=== PATIENT | female | born 1960 | race Caucasian/White ===

== ENCOUNTER 2020-02-01 21:36 | Emergency (ER) | payer OTHER ==
--- OUTSIDE RECORDS SUMMARY | 2020-02-01 21:38 | XMS REPORT | Clinical Summary ---
:1960 Author Organization [facility] Address [address] [place] [address] Care Team Providers Name Role Phone Brandon Nguyen Primary Care Provider Allergies No Known Allergies Medications Medication Sig Dispensed Refills Start Date End Date Status citalopram (CELEXA) 20 Take 20 mg by 0 Active MG tablet mouth daily. pantoprazole Take 40 mg by 0 Act stephen (PROTONIX) 40 MG mouth daily. tablet lactobacillus Take 1 capsule by 0 Active rhamnosus, GG, mouth daily. (CULTURELLE) 10 billion cell capsule Missing or CHOLESTENE FOR CHOLESTROL OTC 0 Active Non-Formulary 1 CAPSULE DAILY . Medication Active Problems Not on file Social History Tobacco Use Types Packs/Day Years Used Date Never Smoker Smokeless Tobacco: Never Used Alcohol Use Drinks/Week oz/Week Comments Yes 7 Glasses of wine 4.2 Sex Assigned at Date Recorded Not on file Job Start Date Occupation Industry Not on file Not on file Not on file Travel History Travel Start Travel End No recent travel history available. Last Filed Vital Signs Not on file Plan of Treatment Not on file Results Not on fileafter 01/31/2019 Insurance Payer Benefit Plan / Group Subscriber ID Type Phone A ddress [employer] [facility] [place] [employer] x[place] PPO CARE [facility] [place] [employer] xxxxxxxxx HMO/POS CARE CHOICE
--- OUTSIDE RECORDS SUMMARY | 2020-02-01 21:39 | XMS REPORT | Summary of Care ---
:1960 Author Name HEYDI Bello Address Unavailable Unavailable , Care Team Providers Name Role Phone HEYDI Bello Unavailable Unavailable LO LYN Unavailable Unavailable Slim LYN Unavailable Unavailable ALLEGRA LYN Unavailable Unavailable HEYDI LYN Unavailable Unavailable Unavailable Unavailable Unavailable Functional Status Name Dates Details Functional status health issues are not documented Status: Name Dates Details Cognitive status health issues are not documented Status: Problems Name Dates Details Positive EFRAIN (antinuclear antibody) (795.79, R76.8) Status: Active Shortness of breath (786.05, R06.02) Sta tus: Active 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 Refills: 0 Active Pantoprazole Sodium 40 MG Oral Tablet Delayed Release TAKE 1 TABLET DAILY. Refills: 0 Active 7 Tablet Bottle Lexapro 10 MG Oral Tablet TAKE 1 TABLET DAILY. Refills: 0 Active Allergies and Adverse Reactions Name Dates Details No Known Drug Allergies (Allergy) Status : Active Past Medical History Name Dates Details History of H/O colonoscopy (V45.89, Z98.890) Status: Resolved History of hemorrhoids (V13.89, Z87.19) Status: Resolved History of (V13.29) Status: Re solved Procedures Procedure Dates Details History of section Completed History of Tonsillectomy Completed History of Cataract surgery Completed History of Shoulder surgery Completed History of Abdominoplasty Completed History of Kristina fundoplication laparoscopic Completed Immunization Name Dates Details Immunizations not documented Family History Name Dates Details Family history of Myofibrosis (728.2, M62.89) Status: Active Name Dates Details Family history of multiple sclerosis (V17.2, Z82.0) Status: Active Social History Name Dates Details - Status: Name Dates Details Never smoked tobacco (finding) Vital Signs Date Test Result Details No Known Vitals to report Results Date Description Value Details Results not documented Plan of Care Name Dates Details Planned Observations Planned Goals not documented Interventions Provided Plan1. Present at reflux multidisciplinary conference 2. Will follow up with patient after reflux conference. Instructions Name Dates Details Instructions not documented Encounters Appointment; SHIVA BENAVIDEZ M.D. On: 17-Jan-2018 10:00 Encounter Diagnosis: Problem not documented Appointment; CONRAD BLANCHARD M.D. On: 23-Aug-2018 14 :00 Encounter Diagnosis: Problem not documented Appointment; CONRAD BLANCHARD M.D. On: 28-Aug-2018 14 :00 Encounter Diagnosis: Problem not documented Appointment; LUC HURLEY M.D. On: 18-Mar-2019 14:3 0 Encounter Diagnosis: Problem not documented Appointment; MARTIN DINH M.D. On: 27-Mar-2019 11:30 Encounter Diagnosis: Problem not documented Appointment; LUC HURLEY M.D. On: 11-Jun-2019 11:00 Encounter Diagnosis: Problem not documented Appointment; MARTIN DINH M.D. On: 14-Jun-2019 13:00 Encounter Diagnosis: Problem not documented Appointment; MARTIN DINH M.D. On: 21-Jun-2019 11:00 Encounter Diagnosis: Problem not documented Appointment; MARTIN DINH M.D. On: 28-Jun-2019 14:30 Encounter Diagnosis: Problem not documented Appointment; MARTIN DINH M.D. On: 15-Jul-2019 15:15 Encounter Diagnosis: Problem not documented Appointment; JAQUELIN SOLIZ M.D. On: 06-Aug-2019 9:00 Encounter Diagnosis: Problem not documented Appointment; MARTIN DINH M.D. On: 03-Sep-2019 14:15 Encounter Diagnosis: Problem not documented Appointment; JAQUELIN SOLIZ M.D. On: 25-Oct-2019 11:30 Encounter Diagnosis: Problem not documented Appointment; JAQUELIN SOLIZ M.D. On: 19-Nov-2019 14:45 Encounter Diagnosis: Problem not documented
--- OUTSIDE RECORDS SUMMARY | 2020-02-01 21:39 | XMS REPORT | Continuity of Care Document ---
:1960 Author Organization [facility] t Address [address] [place] [address] Care Team Providers Name Role Phone Wendy Brandon Primary Care Physician HEYDI Attending Clinician Unavailable Paulina Guerra Attending Clinician MYLES Attending Clinician Unavailable Enrique Hurley Attending Clinician SLIM Attending Clinician Unavailable Slim Bueno Attending Clinician LO Attending Clinician Unavailable Kalyan Burdick Attending Clinician REEMA Attending Clinician Unavailable Nancy Burciaga Attending Clinician Lo Attending Clinician Faisal Song Attending Clinician Caseyassi Admitting Clinician Problems Condition Condition Condition Status Onset Resolution Last Treating Co mments Source Name Details Category Date Date Treatment Clinician Date GERD Diagnosis Active 2019-10-14 Mem oria 3- 12:42:00 l GERD 00:00: Mitchell 00 Active 08/08/2019 [facility] GERD K21.9 Diagnosis Active 2019-11-01 Memoria 3-05 16:22:00 l GERD 00:00: [place] K21.9 00 Active 08/08/2019 [facility] DIARRHEA Diagnosis Active 2018-062019-06-11 M emoria JAMESLERODER 0-14 10:22:00 l RMA DIARRHEA 00:00: [place] DYSPHAGIAA SCHLERODER 00 RMA DYSPHAGIAA Active 03/18/2019 [facility] FOLLOW UP Diagnosis Active 2019-03-28 Memoria 8 09:26:00 l FOLLOW 00:00: [place] UP 00 Active 9 [facility] NEW PT Diagnosis Active 2018-01-19 Mem oria CONSULT - 13:06:00 l NEW PT 00:00: Mitchell CONSULT 00 Active 11/13/2017 [facility] V76.12 - Diagnosis Active 2013-12-10 M emoria SCREEN 11-13 17:00:00 l MAMMOGRA V76.12 - 00:01: Herm faye SCREEN 00 MAMMOGRA Active 11/13/2013 [place] History of History of Problem Resolve [facility] [place] [facility] History of History of Problem Resolve Univers H/O H/O d [place] History of History of Problem Resolve Univers hemorrhoid hemorrhoid d it y of s s [place] [facility] Positive Positive Problem Active Unive rs EFRAIN EFRAIN ity of (antinucle (antinucle [place] [facility]ici antibody) antibody) ans Shortness Shortness Problem Active Uni vers of breath of breath [facility] [place] [facility] Limited Limited Problem Active Univers scleroderm scleroderm it y of a a [place] [facility] Hiatal Hiatal Problem Active Univers hernia hernia [facility] [place] [facility] Seasonal Seasonal Problem Active Unive rs allergies allergies [facility] [place] [facility] Depression Depression Problem Active U nivers [facility] [place] [facility] Hemorrhoid Hemorrhoid Problem Active U nivers [facility] [place] [facility] Dysphagia Dysphagia Problem Active Uni vers [facility] [place] [facility] GERD GERD Problem Active Univers (gastroeso (gastroeso it y of phageal phageal [place] reflux reflux Physici disease) disease) ans Abdominal Problem 2018-08-06 Me moria distension 12:19:11 l (gaseous) [place] Abdominal distension (gaseous) 08/06/2018 [facility] Encounter Problem 2018-07-12 Me moria for 12:06:19 l screening Mitchell for Encounter osteoporos for is screening for osteoporos is 07/12/2018 [place] Asymptomat Problem 2018-07-12 M emoria ic 12:06:19 l menopausal [place] state Asymptomat ic menopausal state 07/12/2018 [place] Other Problem 2018-07-12 Memor ia specified 12:06:19 l disorders Other [place] of bone specified density disorders and of bone structure, density unspecifie and d site structure, unspecifie d site 07/12/2018 [place] Depressive Problem Resolve 2019-12-05 Memoria disorder d 23:43:30 l (disorder) [place] Depressive disorder (disorder) Resolved Problem 12/05/2019 [facility], [place],[facility], EDDC History of Problem Resolve 2019-12-05 Memoria - d 23:43:30 l cardiovasc History Her perez ular of - disease cardiovasc (context-d ular ependent disease category) (context-d ependent category) Resolved Problem 12/05/2019 [facility], [place],[facility], [facility]DC Hemorrhoid Problem Resolve 2019-12-05 Memoria s d 23:43:30 l (disorder) [place] castro Hemorrhoid s (disorder) Resolved Problem 12/05/2019 [facility], [facility]DC Hyperchole Problem Resolve 2019-12-05 Memoria sterolemia d 23:43:30 l (disorder) [place] castro Hyperchole sterolemia (disorder) Resolved Problem 12/05/2019 [facility], [place],[facility], EDDC Systemic Problem Resolve 2019-12-05 Me moria sclerosis d 23:43:30 l (disorder) Systemic He rmann sclerosis (disorder) Resolved Problem 12/05/2019 [facility], [place],[facility], [facility] GASTRO-ESO Diagnosis Active 2019-11-01 Memoria PHAGEAL 16:22:00 l REFLUX Mitchell DISEASE GASTRO-ESO WITHOUT PHAGEAL REFLUX DISEASE WITHOUT Active [facility] Encounter Problem 2017-2018-07-12 2018-07-12 Memoria for 12-29 12:06:19 12:06:19 l screening 04:06: [place] mammogram Encounter 14 for for malignant screening neoplasm mammogram of breast for malignant neoplasm of breast 12/29/2017 07/12/2018 [place] Allergies, Adverse Reactions, Alerts Allergy Allergy Status Severity Reaction(s) Onset Inactive Treating Comm ents Source Name Type Date Date Clinician No Known No Known Active Marie a Medicati Medicati l on on Mitchell Shaw s s Family History Family Member Diagnosis Comments Start Date Stop Date Source Mother Family history of [facility] [place] Myofibrosis Physicians Father Family history of [facility] ity of [place] multiple sclerosis Physic ians Social History Social Habit Start Date Stop Date Quantity Comments Source Sex Assigned At [facility] Social History 2017-09-28 2017-09-28 [facility] 04:59:00 04:59:00 Smoking Status Start Date Stop Date Source Never smoker [facility] Medications Ordered Filled Start Stop Current Ordering Indication Dosage Frequency Signature Comments Components Source Medication Medication Date Date Medication? Clinician (SIG) Name Name [facility] Yes 15 mL, Memoria Mouthwash 6-29 S&SWALLOW, l (Benadryl/L 16:43: QID, # Herm faye idocaine/Ma 00 1800 mL, 6 alox/) Refill(s), 1:1:1 called to pharmacy [facility] Yes MarlysaGam Ks moria 1-08 See l 21:34: Instructio Mitchell 00 ns, Take 1 Packet BID X 14 Days; then Take 1 Take Daily, # 2 box, Refill(s) 1, Pharmacy: [facility] 2018-06 Yes 15 mL, Memoria Mouthwash 0-15 S&SWALLOW, l (Benadryl/L 15:43: QID, PRN He rmann idocaine/Ma 57 GI Upset, alox/) # 400 mL, 1:1:1 1 Refill(s), called to pharmacy [facility] 2018-06 No 15 mL, Memoria Mouthwash 0-14 S&SWALLOW, l (Benadryl/L 20:42: PRN, PRN He rmann idocaine/Ma 20 GI Upset, alox/) # 600 mL, 1:1:1 0 Refill(s), called to pharmacy [facility] 2018-06 No 15 mL, Memoria Mouthwash 0-14 S&SWALLOW, l (Benadryl/L 20:31: PRN, PRN He rmann idocaine/Ma 00 GI Upset, alox/) # 600 mL, 1:1:1 0 Refill(s) Escitalopra 2018-06 Yes 20 mg = 1 M emoria m 20 MG 0-14 tab, PO, l Oral Tablet 19:27: Daily, # He rmann [Lexapro] 00 30 tab, 1 Refill(s) Ranitidine 2018-06 Yes 150 mg = 1 M emoria 150 MG Oral 0-14 tab, PO, l Tablet 19:27: Bedtime, 0 Roshni nn [Zantac] 00 Refill(s) rifaximin Yes 550 mg = 1 Me moria 550 MG Oral 2-05 tab, PO, l Tablet 23:51: TID, # 42 [place] [XIFAXAN] 00 tab, 0 Refill(s), Pharmacy: [facility] pantoprazol 2017-06 Yes 40 mg = 1 M emoria e 40 mg 0-26 tab, PO, l oral 21:15: Daily, # Mitchell enteric 00 90 tab, 3 coated Refill(s), tablet Pharmacy: [facility] rifaximin No 550 mg = 1 Me moria 550 MG Oral 8-29 tab, PO, l Tablet 14:14: TID, # 42 [place] [XIFAXAN] 51 tab, 0 Refill(s), Pharmacy: [facility] rifaximin No 550 mg = 1 Me moria 550 MG Oral 8-15 tab, PO, l Tablet 17:30: TID, # 42 [place] [XIFAXAN] 00 tab, 0 Refill(s), Pharmacy: [facility] Zantac Yes 0 Memoria 8-15 Refill(s) l 15:58: Mitchell 00 pantoprazol Yes 40 mg = 1 M emoria e 40 mg 8-15 tab, PO, l oral 15:58: Daily, 0 [place] enteric 00 Refill(s) coated tablet citalopram Yes 20 mg = 1 Me moria 20 mg oral 8-15 tab, PO, l tablet 15:58: Daily, 0 [place] 00 Refill(s) lactobacill Yes 1{capsu QD Take [address] [facility] 07-06 le} capsule by [facility] rhamnosus, 11:21: mouth Medica l GG, 18 daily. Center (CULTURELLE ) 10 billion cell capsule Missing or Yes CHOLESTENE [facility] Non-Formula 2- FOR [facility] - ry 11:21: CHOLESTROL Medical Medication 18 OTC1 Center CAPSULE DAILY . pantoprazol Yes 40mg QD Take [address] [facility] [address] e 2-01 by mouth [facility] - (PROTONIX) 11:21: daily. Medic al 40 MG 17 Center tablet citalopram 2015-06 Yes 20mg QD Take [address] (CELEXA) 20 07-26 by mouth [facility] s - MG tablet 08:42: daily. Medica l 51 Center Gaviscon Gaviscon Yes TAKE Univ ers CHEW CHEW DIRECTED. [facility] [place] [facility] Pantoprazol Pantoprazol Yes 1 QD TAKE 1 Univers e Sodium 40 e Sodium 40 TABLET ity of MG Oral MG Oral DAILY. [place] Tablet Tablet Physici Delayed Delayed ans Release Release Lexapro 10 Lexapro 10 Yes 1 QD TAKE 1 U nivers MG Oral MG Oral TABLET ity of Tablet Tablet DAILY. [facility] Vital Signs Vital Name Observation Time Observation Value Comments Source Systolic blood 2019-08-06 118 mm[Hg] Location: Counts include 234 beds at the [facility] 09:25:00 Position: [place] Physician s Sitting Diastolic blood 2019-08-06 73 mm[Hg] Location: Counts include 234 beds at the [facility] 09:25:00 Position: [place] Physician s Sitting Body height 2019-08-06 66 [in_us] [facility] 09:25:00 [place] Physician s Weight 2019-08-06 127.25 [lb_av] [facility] 09:25:00 [place] Phys[facility] s Body mass index 2019-08-06 20.54 kg/m2 [place] o f (BMI) [Ratio] 09:25:00 [facility] Body temperature 2019-08-06 96.8 [degF] Method: Oral [facility] 09:25:00 [place] [facility] Heart Rate 2019-08-06 73 /min [facility] 09:25:00 [place] Phys[facility] s Systolic (mm Hg) 2019-03-27 [facility] rmann 16:38:00 Diastolic (mm Hg) 2019-03-27 [facility] H ermann 16:38:00 Heart Rate 2019-03-27 Yo Ledezma n 16:38:00 Respitory Rate 2019-03-27 [facility] 16:38:00 Height 2019-03-27 170.18 cm Yo Polkan n 16:38:00 Systolic (mm Hg) 2019-03-18 [facility] He rmann 19:23:00 Diastolic (mm Hg) 2019-03-18 [facility] Yolette ermann 19:23:00 Heart Rate 2019-03-18 Yo Ledezma n 19:23:00 Height 2019-03-18 170.18 cm Yo Ledezma n 19:23:00 Weight 2019-03-18 Yo Polkan n 19:23:00 BMI Calculated 2019-03-18 [facility] faye 19:23:00 BP Systolic 2018-08-28 122 mm[Hg] Location: [facility] 14:38:00 Position: [place] Physician s Sitting BP Diastolic 2018-08-28 77 mm[Hg] Location: [facility] 14:38:00 Position: [place] Physician s Sitting Weight 2018-08-28 126.5 [lb_av] [facility] 14:38:00 [place] [facility] Body Mass Index 2018-08-28 20.42 kg/m2 University o f Calculated 14:38:00 [place] [facility] Heart Rate 2018-08-28 90 /min Location: [facility] 14:38:00 Carotid; [place] Physician s Weight 2018-01-17 Yo Polkan n 15:46:00 BMI Calculated 2018-01-17 [facility] 15:46:00 Respitory Rate 2018-01-17 [facility] 15:46:00 Height 2018-01-17 167.64 cm Yo Ledezma n 15:46:00 Systolic (mm Hg) 2018-01-17 [facility] rmann 15:46:00 Diastolic (mm Hg) 2018-01-17 [facility] Yolette ermann 15:46:00 Procedures Procedure Date / Time Performing Clinician Source Performed [LH] TSH+Free T4 2018-08-30 00:00:00 [facility] Physicians [[facility]] CMP W/EGFR 2018-08-28 00:00:00 [facility] [[facility]] CBC (INCLUDES 2018-08-28 00:00:00 [facility] DIFF/PLT) Physicians [[facility]] CREATINE KINASE, 2018-08-28 00:00:00 Unive [facility] TOTAL Physicians [[facility]] URINALYSIS, COMPLETE 2018-08-28 00:00[facility] 2018-05-05 [facility] [place] section Physicians History of Tonsillectomy [facility] Physicians History of Shoulder [facility] [place] surgery Physicians History of Abdominoplasty Univer [facility] Physicians History of Kristina [facility] fundoplication Physicians laparoscopic Cataract [facility] surgery<sup>1</sup> Colonoscopy [facility] Endoscopy of GI tract [facility] Rotator cuff repair [facility] Encounters Start End Encounter Admission Attending Care Care Encounter Source Date/Time Date/Time Type Type Clinicians Facility Department ID 2019-12-02 2019-12-03 Outpatient [id number] 11:42:06 23:59:59 [id number] 2019-11-19 2019-11-19 AppointMICHELLE Dunne Minimally [id number] Univers 14:45:00 14:45:00 t; JAQUELIN GUERRA M.D. Invasive ity ludwin HAMMER M.D. [facility] [place] [facility]) ans 2019-10-25 2019-10-25 MICHELLE Stein Minimally [id number] Univers 11:30:00 11:30:00 t; JAQUELIN GUERRA M.D. Invasive ity ludwin HAMMER M.D. [facility] [place] [facility] ([facility]) ans 2019-10-17 2019-10-17 [facility] [id number] 09:30:00 23:59:00 Jaquelin Alfred 2019-10-17 2019-10-17 Outpatient NW REDD [id number] NW 09:30:00 09:30:00 2019-09-03 2019-09-03 MICHELLE Tomlinson UTP [id number] Univers 14:15:00 14:15:00 t; Ace SALAZAR [place] AMIT, M.D. Physi ans 2019-08-06 2019-08-06 MICHELLE Stein Minimally [id number] Univers 09:00:00 09:00:00 t; JAQUELIN GUERRA M.D. Invasive ity ludwin HAMMER M.D. [facility] [place] [facility] ans 2019-07-31 2019-07-31 Outpatient Slim [facility] [id number] 07:39:00 23:59:00 Cassius 06 [facility] 2019-07-31 2019-07-31 Outpatient [facility] [id number] [facility] 07:39:00 07:39:00 2019-07-15 2019-07-15 [facility] UTP [id number] Univers 15:15:00 15:15:00 t; Ace SALAZAR [place], [place] Ace SALAZAR Physi ci ans 2019-06-28 2019-06-28 [facility] MICHELLE [id number] Univers 14:30:00 14:30:00 t; Ace SALAZAR [place], [place] Ace SALAZAR Physi ci ans 2019-06-21 2019-06-21 [facility] MICHELLE [id number] Univers 11:00:00 11:00:00 t; Ace SALAZAR [place], [place] Ace SALAZAR Physi ci ans 2019-06-14 2019-06-14 [facility] UTP [id number] Univers 13:00:00 13:00:00 t; Ace SALAZAR [place], [place] Ace SALAZAR Physi ci ans 2019-06-12 2019-06-13 Outpatient [id number]. 2.16.840.1. [id number] 15:33:00 23:59:59 [id number] 5.92 2019-06-11 2019-06-11 Outpatient shane [facility] [id number] 10:20:00 15:22:00 Cassius 03 [facility] 2019-06-11 2019-06-11 [facility] SLIM, [facility] UTP [id number] Univers 11:00:00 11:00:00 t; Ace CALLE [place], [place] Delon CALLE M.D. ans 2019-06-11 2019-06-11 Outpatient [facility] [id number] [facility] 10:20:00 10:20:00 2019-03-27 2019-03-27 Outpatient Myles [facility] [id number] 11:33:00 23:59:00 Sunday Smalls 04 2019-03-27 2019-03-27 Outpatient [facility] [id number] [facility] 11:33:00 11:33:00 2019-03-27 2019-03-27 [facility] BUENOMICHELLE FRANCO [facility] [id number] Univers 11:30:00 11:30:00 t; [place] Ace SALAZAR Physi ci [facility] 2019-03-18 2019-03-18 Outpatient Slim [facility] [id number] 14:13:00 23:59:00 Cassius 02 [facility] 2019-03-18 2019-03-18 [facility] MICHELLE HURLEY [id number] Univers 14:30:00 14:30:00 t; Ace CALLE [place] Delon CALLE M.D. [facility] 2019-03-18 2019-03-18 Outpatient [facility] [id number] [facility] 14:13:00 14:13:00 2018-08-28 2018-08-28 MICHELLE Lipscomb Rheumatolog [id number] Univers 14:00:00 14:00:00 t; silvio MARTINES M.D. [place] Delon MARTINES M.D. [facility] 2018-08-23 2018-08-23 MICHELLE Lipscomb [id number] Univers 14:00:00 14:00:00 t; disha MARTINES M.D. [place] Delon MARTINES M.D. ans 2018-01-17 2018-01-17 Outpatient Shiva Burdick [facility] [id number] 10:37:00 23:59:00 Abdallah 2018-01-17 2018-01-17 AppointMICHELLE Soler [id number] Univers 10:00:00 10:00:00 t; SHIVA BURDICK M.D. i ty of Ace SHANNON ans 2017-12-23 2017-12-23 Outpatient Patrica, 2.16.840. [id number]. [id number] 09:54:00 23:59:00 Ruizselina Cummingsne [id number] 5.28 2017-12-23 2017-12-23 Outpatient Patrica, 2.16.840. [id number]. [id number] 09:54:00 23:59:00 Ruiz Cruz [id number] 5.28 2017-09-27 2017-09-27 Outpatient Lo, 2.16.840. 2.16.840.1. [id number] 08:27:00 23:59:00 Carlos [id number] 3.615.9 5.9 2017-09-14 2017-09-14 [facility] LO, [facility] UTP [id number] Univers 13:00:00 13:00:00 t; disha MARTINES M.D. [place] Delon MARTINES M.D. [facility] 2016-05-19 2016-05-19 Outpatient Hold, 2.16.840. 2.16.840.1. 8 [id number] 15:54:00 23:59:00 Daniel [id number] Faisal [id number] 5.28 2015-04-14 2015-04-14 Outpatient Hold, 2.16.840. 2.16.840.1. 8 [id number] 15:37:00 23:59:00 Daniel [id number] Faisal [id number] 5.28 2013-12-10 2013-12-10 Outpatient Hold, [facility] MHIE [id number] 16:50:00 23:59:00 Daniel Malone Results Test Description Test Time Test Comments Results Result Sour e Comments IMMUNOLOGY 2019-10-14 Not Detected [facility] 18:06:00 (10/14/19 1:06 [facility]) [[facility]] CBC (INCLUDES DIFF/PLT) 2018-08-28 15:50:01 Test Item Value Reference Range Interpretation Comme nts WBC (test code = 6690-2) 4.8 {K/CMM} 3.7-10.4 RBC (test code = 789-8) 4.49 {M/CMM} 4.20-5.40 Hgb (test code = 718-7) 13.4 g/dl 12.0-16.0 Hct (test code = 10431-3) 40.8 % 36.0-48.0 MCV (test code = 787-2) 90.9 fL 80.0-98.0 MCH (test code = 785-6) 29.8 pg 27.0-31.0 MCHC (test code = 786-4) 32.8 g/dl 32.0-36.0 RDW; Above High Threshold (test code = 788-0) 14.7 % 11.5-14. 5 Platelet (test code = 42396-9) 233 {K/CMM} 133-450 Mean Platelet Volume (test code = 11259-2) 9.3 fL 7.4-10.4 [facility]] [id number] 15:50:01 Test Item Value Reference Range Interpretation Comments Segmented Neutrophils (test code 52.7 % 45.0-75.0 = 67313-7) Monocytes (test code = 70527-9) 8.3 % 2.0-12.0 Lymphocytes (test code = 24519-3) 33.2 % 20.0-40.0 Eosinophils; Above High Threshold 4.9 % 0.0-4.0 (test code = 96099-2) Basophils (test code = 706-2) 0.9 % 0.0-1.0 Segs-Bands # (test code = 2.5 {K/CMM} 1.5-8.1 78427-5) Lymphocytes # (test code = 1.6 {K/CMM} 1.0-5.5 31491-7) Monocytes # (test code = 89545-3) 0.4 {K/CMM} 0.0-0.8 Eosinophils # (test code = 0.2 {K/CMM} 0.0-0.5 03285-8) [facility]] CMP [id number] 15:50:01 Test Item Value Reference Range Interpretation Comments Sodium Level 141 {mEq/l} 135-145 (test code = 2951-2) Potassium Level 4.3 {mEq/l} 3.5-5.1 (test code = 2823-3) Chloride Level 105 {mEq/l} 95-109 (test code = 2075-0) Carbon Dioxide 29 {mEq/l} 24-32 (test code = 2027-9) AGAP (test code = 11.3 {mEq/l} 10.0-20.0 86830-6) Glucose Lvl (test 97 mg/dl 70-99 Adult refe rence range code = 2345-7) values reflec t the clinical guidel inesof the [place] Diabet es Association. Creatinine Lvl 0.80 mg/dl 0.50-1.40 (test code = 2160-0) Blood Urea 19 mg/dl 7-22 Nitrogen (test code = 3094-0) BUN/Creatinine 24 6-25 Ratio (test code = 3097-3) Total Protein; 5.9 g/dl 6.4-8.4 Below Low Threshold (test code = 2885-2) Albumin Lvl (test 3.5 g/dl 3.5-5.0 code = 1751-7) Globulin; Below 2.4 g/dl 2.7-4.2 Low Threshold (test code = 67534-5) A/G Ratio (test 1.5 0.7-1.6 code = 1759-0) Calcium Level 9.2 mg/dl 8.5-10.5 Total (test code = 13426-1) ALT (test code = 26 u/l 0-65 1743-4) AST (test code = 20 u/l 0-37 48747-8) Alk Phos (test 112 u/l 39-136 code = 1783-0) Bili Total (test 0.2 mg/dl 0.2-1.3 code = 1974-2) eGFR (test code = 81 The eGFR i s calculated 91044-0) {ML/MIN/1.7} using the CKD-E PI formula. In mos t young, healthyindividu als the eGFR will be >9 0 mL/min/1.73m2. The eGFR declines with a ge. AneGFR of 60-89 may be normal in some population s, particularly th e elderly, forwhom the CKD -EPI formula has not been extensively shawna idated. Use of the eGFR isnot recommended in the following populations:Ind ividuals with unstable c reatinine concentrations, including patient s and those with seri ous co-morbid conditions.Alisha ents with extremes in mus tomeka mass or diet.The sekou a above are obtained fr om the National Kidney Disease Education Progr am(NKDEP) which cam johnson recommends that when the eGFR is used in patientswith ex tremes of body mass index for purposes of devon g dosing, the eGFR should be multiplied by t he estimated BMI. [facility]] CREATINE KINASE, [id number] 15:50:01 Test Item Value Reference Range Interpretation Comments Creatine Kinase (test code = 2157-6) 40 u/l 12-191 [facility]] URINALYSIS, [id number] 15:50:01 Test Item Value Reference Range Interpretation Comments UA Color (test code = 5778-6) Yellow UA Turbidity (test code = 77778-4) Clear Clear UA Spec Grav (test code = 5810-7) 1.018 <=1.030 UA pH (test code = 5803-2) 7.0 5.0-8.0 UA Protein (test code = 13362-6) Negative Negative UA Glucose (test code = 70077-3) Negative Negative UA Ketones (test code = 61966-3) Negative Negative UA Bili (test code = 5770-3) Negative Negative UA Blood (test code = 5794-3) Negative Negative UROBILINOGEN (test code = 40541-7) <=1.0 0.1-1.0 UA Nitrite (test code = 5802-4) Negative Negative UA Leuk Est; Abnormal (test code = Trace Negative A 5799-2) UA RBC (test code = 25897-7) 1 {/HPF} 0-2 UA WBC (test code = 28253-5) 3 {/HPF} 0-5 UA Mucus (test code = 8247-9) Few None Seen UA Sq Epi (test code = 21576-5) Occasional Few [facility]
--- OUTSIDE RECORDS SUMMARY | 2020-02-01 21:39 | XMS REPORT | Summary of Care ---
[...] Plan1. Present at reflux multidisciplinary conference 2. Follow up in 2 weeks via telephone visit. Instructions Name Dates Details Instructions not documented [...]
--- OUTSIDE RECORDS SUMMARY | 2020-02-01 21:39 | XMS REPORT | Continuity of Care Document ---
:1960 Author Organization [employer] Care Team Providers Name Role Phone [employer] Unavailable Un available Problems Problem Status Onset Classification Date Comments Sourc e Date Reported GERD Active 020 [facility] GERD K21.9 Active 020 [facility] GASTRO-ESOPHAGEAL Active [facility] REFLUX DISEASE WITHOUT 020 [facility] Center DIARRHEA SCHLERODERRMA Active [facility] DYSPHAGIAA 019 Medical Center FOLLOW UP Active [address] Gastro-esophageal 08/06/2018 [facility] reflux disease without 018 Medical esophagitis Center Encounter for screening 07/12/2018 [facility] mammogram for malignant 018 [place] neoplasm of breast NEW PT CONSULT [place] [address] [place] [address] V76.12 - SCREEN Active [facility] MAMMOGRA 014 Crist[place] Dysphagia, unspecified 08/06/[address] [facility] Abdominal distension 08/06/2018 [facility] (gaseous) [facility] Systemic sclerosis, 08/06/2018 [facility] Major depressive 08/06/2018 [facility] disorder, single Med ical episode, unspecified Center Encounter for screening 07/12/2018 [facility] for osteoporosis Estephania y Asymptomatic menopausal 07/12/2018 [facility] state Crist[place] Other specified 07/12/2018 [facility] disorders of bone Ka ty density and structure, unspecified site Depressive disorder Resolved Problem 12/05/2019 [facility] (disorder) [facility], [facility] History of - Resolved Problem 12/05/2019 [place] as cardiovascular disease Medical (context-dependent C enter, category) [place] [facility] Hemorrhoids (disorder) Resolved Problem 12/05/[address] [facility] EDPA Hypercholesterolemia Resolved Problem 12/05/2019 [facility] (disorder) [facility], [place],[facility] Systemic sclerosis Resolved Problem 12/05/2019 [facility] ([facility]) [facility], [place],[facility] GASTRO-ESOPHAGEAL Active REFLUX DISEASE WITHOUT [facility] Medications Medication Details Route Status Patient Ordering Order Source Instructions Provider Date Magic Mouthwash 15 mL, Active [facility] (Benadryl/Lidoc S&SWALLOW, 020 alem/Maalox/) QID, # 1800 1:1:1 mL, 6 Refill(s), called to pharmacy EnteraGam EnteraGam, Active [facility] See 020 Instructions , Take 1 Packet BID X 14 Days; then Take 1 Take Daily, # 2 box, Refill(s) 1, Pharmacy: [facility] Magic Mouthwash 15 mL, Active [facility] (Benadryl/Lidoc S&SWALLOW, 019 Medic al alem/Maalox/) QID, [facility] 1:1:1 Upset, # 400 mL, 1 Refill(s), called to pharmacy Magic Mouthwash 15 mL, No Longer [place] as (Benadryl/Lidoc S&SWALLOW, Active 019 Medic al alem/Maalox/) PRN, [facility] 1:1:1 Upset, # 600 mL, 0 Refill(s), called to pharmacy Magic Mouthwash 15 mL, [place] (Benadryl/Lidoc S&SWALLOW, 019 Medic al alem/Maalox/) PRN, PRN GI Center 1:1:1 Upset, # 600 mL, 0 Refill(s) Escitalopram 20 20 mg = 1 Active [place] as MG Oral Tablet tab, PO, 019 Medical [Lexapro] Daily, # 30 Center tab, 1 Refill(s) Ranitidine 150 150 mg = 1 Active [place] MG Oral Tablet tab, PO, 019 Medical [Zantac] Bedtime, 0 Center Refill(s) rifaximin 550 550 mg = 1 [place] Oral Tablet tab, PO, 019 Medical [XIFAXAN] TID, # 42 Center tab, 0 Refill(s), Pharmacy: [facility] pantoprazole 40 40 mg = 1 Active [place] mg oral enteric tab, PO, 018 Medical coated tablet Daily, # 90 Center tab, 3 Refill(s), Pharmacy: [facility] rifaximin 550 550 mg = 1 [place] Oral Tablet tab, PO, Active 018 Medical [XIFAXAN] TID, # 42 Center tab, 0 Refill(s), Pharmacy: [facility] rifaximin 550 550 mg = 1 [place]er [place] Oral Tablet tab, PO, Active 018 Medical [XIFAXAN] TID, # 42 Center tab, 0 Refill(s), Pharmacy: [facility] Zantac 0 Refill(s) Active [address] pantoprazole 40 40 mg = 1 Active [place] mg oral enteric tab, PO, 018 Medical coated tablet Daily, 0 Center Refill(s) citalopram 20 20 mg = 1 Active [place] mg oral tablet tab, PO, 018 Medical Daily, 0 Center Refill(s) Allergies, Adverse Reactions, Alerts Substance Category Reaction Severity Reaction Status Date Comments S ource type Reported No Known Assertion Drug ED DC Medication allergy Allergies Immunizations No Data Provided for This Section Results Order Name Results Value Reference Date Interpretation Comments Angela rce Range IMMUNOLOGY Coronavirus Not Detected Not (COVID-19) (10/14/19 1:06 PM) Detected 2019 [facility] Pathology Reports No Data Provided for This Section Diagnostic Reports Report Value Date Source UGI w Barium Swallow EXAM: FLUOROSCOPY UPPER GI 07/31/2019 [facility] Function Video DX DATE: 07/31/2019 7:47 [facility] r INDICATION: - GERD COMPARISON: None. TECHNIQUE: Barium upper GI w as performed using double contrast technique orally. FLUOROSCOPY TIME: 1 minute 18 seconds FLUOROSCOPY DOSE: 17.05 mGy DISCUSSION: Preliminary radiograph: Normal. Swallowing: Normal. Esophagus: Motility: Delayed emptying of the lower esophagu s. Anatomy: No filling defects, mucosal irregularities, obstructions or extrinsic compressions identified. Hiatal hernia: None. Stomach: Post surgical changes of fundoplicatio n are noted. Duodenum: Normal. IMPRESSION: Postoperative changes of fun doplication, with delayed emptying of the dilated lower esophagus. This could relate to a tight fundoplication or crural stenosis. Bone Density DXA 12/23/2017 [place] [employer] [facility] BONE DENSITY ASSESSMENT: 12/23/2017 CLINICAL DATA: Post menopausal. Z78.0. Scree sahil For Osteoporosis/Z13.820 FINDINGS: Bone density evaluation was performed 12/23/2017 on the right femur neck using a Hologic unit. The BMD average for the exam is 0.698 g/cm2. The T-score is - 1.40 and the Z-score is -0.10. This matches the World Health Organizatio n's criteria for osteopenia and places the patient at a medium risk for fracture. An additional bone density e valuation was performed 12/23/2017 on the left femur neck using a Hologic unit. The BMD average for the exam is 0.600 g/cm2. The T-score is -2.20 and the Z-score is -1.00. This matches the World Healt h Organization's criteria for osteopenia and places the patient at a medium risk for fracture. An additional bone density e valuation was performed 12/23/2017 on the right hip using a Hologic unit. The BMD average for the exam is 0.765 g/cm2. The T-score is -1.50 and the Z-score is -0.60. This m atches the World Health Orga nization's criteria for osteopenia and places the patient at a medium risk for fracture. An additional bone density e valuation was performed 12/23/2017 on the left hip using a Hologic unit. The BMD average for the exam is 0.728 g/cm2. The T-score is -1.80 and the Z-score is -0.90. This ma tches the World Health Organ ization's criteria for osteopenia and places the patient at a medium risk for fracture. An additional bone density e valuation was performed 12/23/2017 on the AP L1-L4 region of spine using a Hologic unit. The BMD average for the exam is 0.895 g/cm2. The T-score is -1.40 and the Z-score is -0.01. This matches the [facility] Health Organization's criteria for osteopenia and places the patient at a medium risk for fracture. FRAX 10 year probability of major osteoporotic fracture is 8.8% and hip fracture is 1.4%. IMPRESSION: OSTEOPENIA Patient is at medium risk fo r fracture. Patient consult w/primary care provider is recommended. Patrick Martin D.O., mdl/penrad:12/25/2017 08:59:46 Farm Boss(s): Marie Hanson Breast Mammo Scrn 12/23/2017 [place] NOAH w caty incl CAD MA BILATERAL DIGITAL SCREENING MAMMOGRAM 3D/2D WITH CAD: 12/23/2017 CLINICAL: Screening/Z12.31. Current study was evaluated with a [employer] d Detection (CAD) system. COMPARISON:Comparison is mad e to exams dated: 05/19/2016 mammogram, 04/14/2015 mammogram, and 12/10/2013 mammogram - [facility] Mitchell Sauer. TECHNIQUE: Digital Breast To mosynthesis was performed and utilized for Interpretation. Bonegrafix, version 8.1 was utilized for computer aided detection. FINDINGS: There are scattered fibroglandular densities in both breasts. There are benign appearing c alcifications in both breasts. Bilateral retropectoral saline implants are stable. Implants may obscure breast parenchyma, making mammographic interpretation difficult. No suspicious masses, cluste rs of microcalcifications or areas of architectural distortion are demonstrated within either breast. There has been no significant interval change. IMPRESSION: BENIGN RECOMMENDATION:There is no m ammographic evidence of malignancy. A 1 year screening mammogram is recommended.(12/24/2018) Professional services are pr ovided by the [facility] [place] [facility] Diagnostic Imaging. Patrick Martin D.O., mdl/penrad:12/25/2017 08:58:31 Farm Boss(s): Ignacio Hanson letter sent: BI-RADS 1/2 Mammogram BI-RADS: 2 Benign Digital Mammo Screen - DIGITAL MAMMO SCREEN NOAH MA W CATY 2015 GILD[place] Noah MA w caty BILATERAL DIGITAL SCREENING MAMMOGRAM 3D/2D WITH CAD: 05/19/2016 CLINICAL: Screening. 2D digital mammographic imag es and 3D digital tomosynthesis images were obtained in the CC and MLO projections. Current study was evaluated with a [employer] d Detection (CAD) system. Comparison is made to exams dated: 04/14/2015 mammogram and 12/10/2013 mammogram - [facility]. There are scattered fibroglandular densities in both breasts. Bilateral retropectoral sali ne implants are stable. Implants may obscure breast parenchyma, making mammographic interpretation difficult. No suspicious masses, cluste rs of microcalcifications or areas of architectural distortion are demonstrated within either breast. There has been no significant interval change. IMPRESSION: BENIGN There is no mammographic nate dence of malignancy. A 1 year screening mammogram is recommended. Professional services are pr ovided by the [facility] Diagnostic Imaging. Patrick Martin D.O., mdl/penrad:05/20/2016 15:13:47 Farm Boss: Connie Bowling [facility] This exam was dictated [place] [id number] [place] [facility] [address], [place] [id number]. letter sent: Bilateral Benign Mammogram BI-RADS: 2 Benign Digital Mammo Screen - DIGITAL MAMMO SCREEN NOAH MA W CATY 2014 [facility] Cristiane Noah MA w caty BILATERAL DIGITAL SCREENING MAMMOGRAM 3D/2D WITH CAD WITH AUGMENTATION: 04/14/2015 CLINICAL: Screening. 2D digital mammographic imag es and 3D digital tomosynthesis images were obtained in the CC and MLO projections. Current study was evaluated with a [employer] d Detection (CAD) system. Comparison is made to exam dated: 014 mammogram - [facility]. There are scattered fibroglandular densities in both breasts. Bilateral retropectoral sali ne implants are stable. Implants may obscure breast parenchyma, making mammographic interpretation difficult. No suspicious masses, cluste rs of microcalcifications or areas of architectural distortion are demonstrated within either breast. There has been no significant interval change. IMPRESSION: BENIGN There is no mammographic nate dence of malignancy. A 1 year screening mammogram is recommended. Patrick Martin D.O., mdl/penrad:04/15/2015 08:11:06 Farm Boss: Yo Olguin This exam [place] [id number], [place] [id number]. letter sent: Bilateral Benign Mammogram BI-RADS: 2 Benign Consultation Notes No Data Provided for This Section Discharge Summaries No Data Provided for This Section History and Physicals No Data Provided for This Section Vital Signs Vital Sign Value Date Comments Source Systolic (mm Hg) 116 03/27/2019 [facility] Diastolic (mm Hg) 80 [facility] [place] [facility] Rate 78 03/27/2019 [facility] Respitory Rate 16 03/27/2019 [facility] Center Height 170.18 cm 03/27/2019 [facility] Systolic (mm Hg) 113 03/18/2019 [facility] Center Diastolic (mm Hg) 84 03/18/2019 [facility] Heart Rate 87 03/18/2019 [facility] Height 170.18 cm 03/18/2019 [facility] Weight 57.443 03/18/2019 [facility] BMI Calculated 19.83 03/18/2019 [facility] Center Weight 56.909 01/17/2018 [facility] BMI Calculated 20.25 01/17/2018 [facility] Center Respitory Rate 16 01/17/2018 [facility] Center Height 167.64 cm 01/17/2018 [facility] Systolic (mm Hg) 130 01/17/2018 [facility] Diastolic (mm Hg) 88 01/17/2018 [facility] Encounters Location Location Encounter Encounter Reason Attending ADM PA Stat us Source Details Type Number For Provider Date Date Visit [facility] Outpt Diag [id number] Daniel 12/10 12/11 [facility] Hold /2013 [facility] Cristiane [facility] Outpt Diag [id number] Daniel 04/14 04/15 [facility] Hold /2014 Cristiane Imaging Cristiane [facility] Outpt Diag [id number] Daniel 05/19 05/20 [facility] Out[facility] Services Hold /2015 Cristiane Sauer [facility] Outpatient [id number] Carlos 09/27 09/28 Cristiane Cameron [facility] Outpt Diag [id number] Ruiz 12/23 12/24 [facility] [place] /2017 Ka ty Luz [facility] Outpatient [id number] [facility] 01/17 01/18 [facility] /2017 Medical [facility] [place] [facility] Out[facility] [id number] Cassius 03/18 03/19 [facility] Disease Thosani /2018 [facility] Outpatient [id number] Sunday 03/27 03/28 [facility] Disease Bueno [facility] Bedded [id number] Cassius 06/11 06/11 [facility] Outpatient Thosani /2019 [facility] Digestive Phone [id number] 06/12 06/14 M H EDDC Disease Message /2019 [facility] Outpatient [id number] Cassius 07/31 08[facility]01 [facility] [id number] Matt 10/16 10/17 [facility] /2019 [facility] Phone [id number] 12/01 12/03 M EDDC Disease Message /2019 [place] Procedures Procedure Code Date Perfomer Comments Source Hemorrhoidectomy [id number] [address],[facility], [facility]PA Cataract [id number] Bilateral [facility] surgery<sup>1</sup> [facility], [place],[facility] EDPA Colonoscopy [id number] [facility], [place],[facility]PA Endoscopy of GI tract [id number] [facility], [facility] Crist[place],[facility] EDPA Rotator cuff repair [id number] [facility], [place],[facility] EDPA Assessment and Plan Assessment and Plan Date Source Extracted from:Title: Consult Note 03/28/2019 [facility] Author: Sunday Bueno MD Date: 03/27/19 Patient with incontinence to flatus and stool with constant seepage.She [id number] a week which is affecting her quality of life. Hehas tried fiber and stool bulking but it has not helped. On exam, she has a weak resting tone and decreased squeeze p ressure. I recommended we start with a PNE. If he has improvement with the PNE/Stage 1, then she would be a candidate for a SNS. I gave her the handout on the procedure and device.Shewould like to proceed. PNE after 04/23/19 [facility] 45 minutes were spent with the patient d iscussing treatment options, drawing diagrams, and answering her questions. >50% of this time was spent coordinating clinical care. Hemorrhoids(K64.9) Plan of Care No Data Provided for This Section Social History Social History Date Source Social History TypeResponse 01/17/2018 [place] Alcohol Past Smoking Status Never smoker; Ready to change: No; Molly rns about tobacco use in household: No; Exposure to Tobacco Smoke None; Cigarette Smoking Last 365 Days No; Reg Smoking Cessation Counseling No entered on: 01/17/18 Social History TypeResponse 01/17/2018 [facility] Alcohol Past Smoking Status Never smoker; Ready to change: No; Molly rns about tobacco use in household: No; Exposure to Tobacco Smoke None; Cigarette Smoking Last 365 Days No; Reg Smoking Cessation Counseling No entered on: 03/27/19 Social History TypeResponse 01/17/2018 [facility] Alcohol Past Smoking Status Never smoker; Ready to change: No; Molly rns about tobacco use in household: No; Exposure to Tobacco Smoke None; Cigarette Smoking Last 365 Days No; Reg Smoking Cessation Counseling No entered on: 03/27/19 Social History TypeResponse 01/17/2018 [facility] Alcohol Past Smoking Status Never smoker; Ready to change: No; Molly rns about tobacco use in household: No; Exposure to Tobacco Smoke None; Cigarette Smoking Last 365 Days No; Reg Smoking Cessation Counseling No entered on: 03/27/19 No data available for this 09/28/2017 Cristiane casanova section Family History No Data Provided for This Section Advance Directives No Data Provided for This Section Functional Status No Data Provided for This Section
--- OUTSIDE RECORDS SUMMARY | 2020-02-01 21:39 | XMS REPORT | Summary of Care ---
:[address] [facility] Address [address], [address] [place] [address]- Encounter HQ Gonzalezntr_shad(FIN) [id number] Date(s): 12/02/19 - 12/03/[address] [facility] [address] [place] [address]- [phone] Vital Signs No data available for this section Problem List Condition Effective Dates Status Health Status Informant Depression(Confirmed) Resolved Hx of Raynaud's syndrome(Confirmed) Resolved Hemorrhoids(Confirmed) Resolved High blood cholesterol(Confirmed) Resolved Scleroderma(Confirmed) Resolved Allergies, Adverse Reactions, Alerts No Known Medication Allergies Medications Magic Mouthwash (Benadryl/Lidocaine/Maalox/) 1:1:1 15 mL, S&SWALLOW, QID, # 1800 mL, 6 Refill(s), called to pharmacy Start Date: 12/02/19 Stop Date: 06/29/20 Status: Ordered Results No data available for this section Immunizations No data available for this section Procedures Procedure Date Related Diagnosis Body Site Status Hemorrhoidectomy 05/2018 Completed Cataract surgery1 Completed Colonoscopy Completed Endoscopy of GI tract Comple karishma Rotator cuff repair Complete d 1Bilateral Social History Social History Type Response Alcohol Past Smoking Status Never smoker; Ready to prince e: No; Concerns about tobacco use in household: No; Exposure to Tobacco Smoke None; Cigarette Smoking Last 365 Days No; Reg Smoking Cessation Counseling No entered on: 03/27/19 Assessment and Plan No data available for this section
[2020-02-01 22:42] LABS: Absolute Lymphocytes (CBC) 1.7 K/uL (0.7-4.9); Basophils % 0.4 % (0-1.3); Hematocrit 41.9 % (36.0-45.0); MPV 9.8 fL (7.6-11.3); RBC Red Blood Cell Count 4.82 M/uL (3.86-4.86)
[2020-02-01 22:47] LABS: Protime INR 0.98
[2020-02-01] MEDS ORDERED: NA CHLORIDE 0.9% 1,000 ML ONE (22:58)
[2020-02-01] MEDS ORDERED: METOCLOPRAMIDE 10 MG/2mL INJ ONE (22:58)
[2020-02-01] MEDS ORDERED: DIPHENHYDRAMINE 50 MG/ML VIAL ONE (22:58)
[2020-02-01] MEDS ORDERED: NA CHLORIDE 0.9% 50 ML IV ONE (22:59)
[2020-02-01 23:01] LABS: Albumin 3.8 g/dL (3.4-5.0); Bilirubin Direct 0.1 mg/dL (0-0.2); Bilirubin Total 0.6 mg/dL (0.2-1.0); Potassium 3.3 mmol/L (3.5-5.1); Protein, Total 7.7 g/dL (6.4-8.2)
[2020-02-02 00:25] LABS: Urine Blood NEGATIVE (NEG); Urine Glucose NEGATIVE (NEG); Urine Protein NEGATIVE (NEG); Urine pH 8.5 (5.0-7.0)
--- NOTE | 2020-02-02 02:32 | ER ---
Nurse's Notes [facility] Name: Bella Biswas Age: 59 yrs Sex: Female : 1960 Arrival Date: 02/01/2020 Time: 21:38 Bed 14 Private MD: Diagnosis: Headache;Sinus Pain Presentation: 01/31 22:18 Chief complaint: Spouse and/or significant other states: SPOUSE STATES SHE IS BEING ls4 TREATED FOR A SINUS INFECTION AND STARTED CEFUROXIME 2 DAYS AGO. SHE TOOK IT THIS MORNING AND HAS NOT EATEN ALL DAY. SHE HAS A SEVERE HEADACHE AND CANNOT VOMIT BECAUSE SHE HAS A MESH THAT SHE GOT 8 YEARS AGO THAT WRAPS AROUND HER CHEST TO KEEP THINGS DOWN, BECAUSE SHE HAD A HERNIA THAT CAUSED HIATAL HERNIA. Coronavirus screen:. Ebola Screen: No symptoms or risks identified at this time. Initial Sepsis Screen: Does the patient meet any 2 criteria? No. Patient's initial sepsis screen is negative. Does the patient have a suspected source of infection? No. Patient's initial sepsis screen is negative. Risk Assessment: Do you want to hurt yourself or someone else? Patient reports no desire to harm self or others. Onset of symptoms was January 30, 2020 at 08:00. Care prior to arrival: Medication(s) given: 2 BUPAP. 22:18 Method Of Arrival: Ambulatory ls4 22:18 Acuity: TIARRA 2 ls4 Triage Assessment: 23:05 Headache History: The patient has had previous headaches and this one is different than vc previous episodes, and this one is more severe than previous episodes. General: Appears in no apparent distress. uncomfortable, Behavior is anxious, drowsy, fussy. Pain: Complains of pain in left maxillary sinus and right maxillary sinus and left frontal sinus and right frontal sinus Pain does not radiate. Pain currently is 10 out of 10 on a pain scale. Quality of pain is described as pressure, squeezing, throbbing, Pain began gradually, Also complains of nausea, photophobia. 23:05 Neuro: Level of Consciousness is lethargic, Oriented to person, place, situation. vc Historical: - Allergies: 22:38 No Known Allergies; ls4 - Home Meds: 22:38 Lexapro Oral [Active]; pantoprazole oral oral [Active]; Synthroid Oral [Active]; ls4 - Immunization history:: Adult Immunizations up to date. - Social history:: Smoking status: Patient denies any tobacco usage or history of. Screenin:15 Abuse screen: Denies threats or abuse. Nutritional screening: No deficits noted. vc Tuberculosis screening: No symptoms or risk factors identified. Fall Risk None identified. Assessment: 22:15 General: Appears in no apparent distress. uncomfortable, Behavior is anxious, drowsy, vc fussy. Pain: Complains of pain in left maxillary sinus and right maxillary sinus and left frontal sinus and right frontal sinus. Cardiovascular: Capillary refill < 3 seconds Patient's skin is warm and dry. Respiratory: Airway is patent Respiratory effort is even, unlabored, Respiratory pattern is regular, symmetrical. GI: No signs and/or symptoms were reported involving the gastrointestinal system. GI: Reports nausea. : No signs and/or symptoms were reported regarding the genitourinary system. Reports. Derm: No signs and/or symptoms reported regarding the dermatologic system. Musculoskeletal: No deficits noted. 23:00 Reassessment: Patient laying in bed with eyes closed, chest rising and falling equally. vc Patient slept through the CT and while her earrings were removed. 02/01 00:15 Reassessment: Patient laying on left side resting, patient states the nausea has vc subsided but the headache is still their. 01:29 Reassessment: patient resting with eyes closed, chest rising and falling equally, No vc other complaints at this time. 02:00 Reassessment: Patient is alert, oriented x 3, equal unlabored respirations, skin vc warm/dry/pink. Patient ambulated to bathroom. No requests at this time. Vital Signs: 01/31 22:18 BP 160 / 112; Pulse 64; Resp 22; Temp 97.7(O); Pulse Ox 98% on R/A; Weight 57.61 kg; ls4 Height 5 ft. 7 in. (170.18 cm); Pain 10/10; 23:00 BP 178 / 93; Pulse 66; Resp 18; Pulse Ox 96% on R/A; vc 02/01 00:17 BP 178 / 93; Pulse 66; Resp 18; Pulse Ox 97% on R/A; vc 01:30 BP 167 / 87; Pulse 68; Resp 18; Pulse Ox 100% on R/A; vc 02:00 BP 156 / 82; Pulse 71; Resp 18; Pulse Ox 97% on R/A; vc 01/31 22:18 Body Mass Index 19.89 (57.61 kg, 170.18 cm) ls4 [place] Coma Score: 02:29 Eye Response: spontaneous(4). Verbal Response: oriented(5). Motor Response: obeys mh7 commands(6). Total: 15. ED Course: 01/31 21:38 Patient arrived in ED. bp1 22:04 Daquan Mao MD is Attending Physician. mh7 22:11 Initial lab(s) drawn, by me, held in ED. Inserted saline lock: 20 gauge in right jp3 antecubital area, using aseptic technique. Blood collected. 22:11 Patient has correct armband on for positive identification. Bed in low position. Call jp3 light in reach. Pillow given. Verbal reassurance given. Pulse ox on. NIBP on. 22:30 Arm band placed on Emesis basin given. vc 22:37 Triage completed. ls4 22:43 Tamela Villegas, LEWIS is Primary Nurse. vc 23:25 CT Head Brain wo Cont In Process Unspecified. EDMS 02/01 02:31 Anthony Pennington MD is Referral Physician. mh7 02:31 Alison Avitia MD is Referral Physician. 7 02:46 No provider procedures requiring assistance completed. IV discontinued, intact, vc bleeding controlled, No redness/swelling at site. Pressure dressing applied. Administered Medications: 01/31 22:54 Drug: Reglan 10 mg Route: IVP; Site: right antecubital; vc 02/01 00:37 Follow up: Response: No adverse reaction; Pain is decreased vc 01/31 22:54 Drug: Benadryl 50 mg Route: IVP; Site: right forearm; vc 02/01 00:37 Follow up: Response: No adverse reaction; Pain is decreased vc 01/31 22:55 Drug: NS 0.9% 1000 ml Route: IV; Rate: 1000 ml; Site: right antecubital; vc 02/01 02:47 Follow up: IV Status: Completed infusion; IV Intake: 1000ml vc Intake: 02:47 IV: 1000ml; Total: 1000ml. vc Outcome: 02:32 Discharge ordered by . 7 02:46 Discharged to home ambulatory, with significant other. vc 02:46 Condition: good 02:46 Discharge instructions given to patient, Instructed on discharge instructions, follow up and referral plans. no drinking with medication, no driving heavy equipment, medication usage, Demonstrated understanding of instructions, follow-up care, medications, Prescriptions given X 2. 02:48 Patient left the ED. Signatures: Dispatcher [employer] EDMS Rojas Perrin jp3 Jaycee Cain RN RN ls4 Tamela Villegas RN RN vc [place]ia[place], Brittany bp1 Holmes, Maurice, MD MD mh7
--- NOTE | 2020-02-02 02:32 | EDPHYS ---
Physician Documentation [facility] Name: Bella Biswas Age: 59 yrs Sex: Female : 1960 Arrival Date: 02/01/2020 Time: 21:38 Bed 14 Private MD: GE Physician Daquan Mao HPI: 01/31 22:40 This 59 yrs old Unknown Female presents to ER via Ambulatory with complaints of mh7 Headache, Nausea. 22:40 The patient complains of pain to the forehead. The patient describes the headache as mh7 intermittent, throbbing, waxing and waning. Onset: The symptoms/episode began/occurred today. 22:41 Associated signs and symptoms: Pertinent positives: nausea, Photophobia sinus mh7 congestion, sinus tenderness, Pertinent negatives: altered mental status, dizziness, fever, malaise, neck stiffness, paresthesias, rash, vision changes, vision loss, vomiting, weakness, vertigo. Severity of symptoms: At its worst the pain was moderate, earlier today, in the emergency department the pain is unchanged. Headache History: The patient has had previous headaches and this one is similar to previous episodes. The symptoms are alleviated by nothing. the symptoms are aggravated by lights, movement, noise, stress. The patient has experienced similar episodes in the past, several times. Historical: - Allergies: 22:38 No Known Allergies; ls4 - Home Meds: 22:38 Lexapro Oral [Active]; pantoprazole oral oral [Active]; Synthroid Oral [Active]; ls4 - Immunization history:: Adult Immunizations up to date. - Social history:: Smoking status: Patient denies any tobacco usage or history of. ROS: 22:41 Constitutional: Negative for fever, chills, and weight loss, Eyes: Negative for injury, mh7 pain, redness, and discharge, Neck: Negative for injury, pain, and swelling, Cardiovascular: Negative for chest pain, palpitations, and edema, Respiratory: Negative for shortness of breath, cough, wheezing, and pleuritic chest pain, Back: Negative for injury and pain, : Negative for injury, bleeding, discharge, and swelling, MS/Extremity: Negative for injury and deformity, Skin: Negative for injury, rash, and discoloration, Psych: Negative for depression, anxiety, suicide ideation, homicidal ideation, and hallucinations, Allergy/Immunology: Negative for hives, rash, and allergies, Endocrine: Negative for neck swelling, polydipsia, polyuria, polyphagia, and marked weight changes, Hematologic/Lymphatic: Negative for swollen nodes, abnormal bleeding, and unusual bruising. Exam: 22:41 Eyes: Pupils equal round and reactive to light, extra-ocular motions intact. Lids and mh7 lashes normal. Conjunctiva and sclera are non-icteric and not injected. Cornea within normal limits. Periorbital areas with no swelling, redness, or edema. Neck: Trachea midline, no thyromegaly or masses palpated, and no cervical lymphadenopathy. Supple, full range of motion without nuchal rigidity, or vertebral point tenderness. No Meningismus. Chest/axilla: Normal chest wall appearance and motion. Nontender with no deformity. No lesions are appreciated. Cardiovascular: Regular rate and rhythm with a normal S1 and S2. No gallops, murmurs, or rubs. Normal PMI, no JVD. No pulse deficits. Respiratory: Lungs have equal breath sounds bilaterally, clear to auscultation and percussion. No rales, rhonchi or wheezes noted. No increased work of breathing, no retractions or nasal flaring. Abdomen/GI: Soft, non-tender, with normal bowel sounds. No distension or tympany. No guarding or rebound. No evidence of tenderness throughout. Back: No spinal tenderness. No costovertebral tenderness. Full range of motion. Skin: Warm, dry with normal turgor. Normal color with no rashes, no lesions, and no evidence of cellulitis. MS/ Extremity: Pulses equal, no cyanosis. Neurovascular intact. Full, normal range of motion. Neuro: Awake and alert, GCS 15, oriented to person, place, time, and situation. Cranial nerves II-XII grossly intact. Motor strength 5/5 in all extremities. Sensory grossly intact. Cerebellar exam normal. Normal gait. Psych: Awake, alert, with orientation to person, place and time. Behavior, mood, and affect are within normal limits. 22:41 Constitutional: The patient appears in no acute distress, alert, awake, uncomfortable. 22:41 Head/face: Exam is negative for obvious evidence of injury or deformity, abrasion(s), negrete signs, contusion, deformity, ecchymosis, erythema, hematoma, laceration(s), raccoon eyes, rash, swelling, Noted is Sinus tenderness, that is moderate, is located over the right frontal sinus, left frontal sinus, right maxillary sinus and left maxillary sinus. Vital Signs: 22:18 BP 160 / 112; Pulse 64; Resp 22; Temp 97.7(O); Pulse Ox 98% on R/A; Weight 57.61 kg; ls4 Height 5 ft. 7 in. (170.18 cm); Pain 10/10; 23:00 BP 178 / 93; Pulse 66; Resp 18; Pulse Ox 96% on R/A; vc 02/01 00:17 BP 178 / 93; Pulse 66; Resp 18; Pulse Ox 97% on R/A; vc 01:30 BP 167 / 87; Pulse 68; Resp 18; Pulse Ox 100% on R/A; vc 02:00 BP 156 / 82; Pulse 71; Resp 18; Pulse Ox 97% on R/A; vc 01/31 22:18 Body Mass Index 19.89 (57.61 kg, 170.18 cm) ls4 [place] Coma Score: 02:29 Eye Response: spontaneous(4). Verbal Response: oriented(5). Motor Response: obeys 7 commands(6). Total: 15. MDM: 01/31 22:25 Patient medically screened. [facility] 02/01 02:29 Differential diagnosis: cluster headache, hypertensive headache, intracerebral mh7 hemorrhage, migraine, sinusitis, tension headache. Data reviewed: vital signs, nurses notes, lab test result(s), CBC, electrolytes, urinalysis, radiologic studies, CT scan. Data interpreted: Pulse oximetry: on room air is 97 %. Interpretation: normal. Counseling: I had a detailed discussion with the patient and/or guardian regarding: the historical points, exam findings, and any diagnostic results supporting the discharge/admit diagnosis, the presence of at least one elevated blood pressure reading (>120/80) during this emergency department visit, lab results, radiology results, the need for outpatient follow up, an ENT specialist, a neurologist, to return to the emergency department if symptoms worsen or persist or if there are any questions or concerns that arise at home. Response to treatment: the patient's symptoms have resolved after treatment, the patient's blood pressure is in an acceptable range, mental status has returned to baseline, the patient no longer shows bradycardia, the patient is not short of breath, the patient is not tachycardic, the patient's pain is gone, the patient's temperature has normalized. 07:03 Response to treatment: the patient is now symptom free, patient is well hydrated. [facility] Refusal of service: The patient/guardian displays adequate decision making capability and despite a detailed discussion of alternatives, benefits, risks, and consequences refuses: Lumbar Puncture procedure. 01/31 22:27 Order name: CBC with Diff; Complete Time: 23:22 [facility] 01/31 22:27 Order name: Basic Metabolic Panel; Complete Time: 23:22 [facility] 01/31 22:27 Order name: Protime (+inr); Complete Time: 23:22 [facility] 01/31 22:27 Order name: Ptt, Activated; Complete Time: 23:22 [facility] 01/31 22:27 Order name: LFT's; Complete Time: 23:22 [facility] 02/01 00:22 Order name: Urine Dipstick--Ancillary (enter results); Complete Time: 00:38 ds4 01/31 22:27 Order name: Urine Dipstick-Ancillary (obtain specimen); Complete Time: 00:20 [facility] 01/31 22:27 Order name: CT Head Brain wo Cont [facility] Administered Medications: 01/31 22:54 Drug: Reglan 10 mg Route: IVP; Site: right antecubital; vc 02/01 00:37 Follow up: Response: No adverse reaction; Pain is decreased vc 01/31 22:54 Drug: Benadryl 50 mg Route: IVP; Site: right forearm; vc 02/01 00:37 Follow up: Response: No adverse reaction; Pain is decreased vc 01/31 22:55 Drug: NS 0.9% 1000 ml Route: IV; Rate: 1000 ml; Site: right antecubital; vc 02/01 02:47 Follow up: IV Status: Completed infusion; IV Intake: 1000ml vc Disposition: 07:03 Co-signature as Attending Physician, Daquan Mao MD. [facility] Disposition: 02/02/20 02:32 Discharged to Home. Impression: Headache, Sinus Pain. - Condition is Stable. - Discharge Instructions: Sinus Headache, [id number]. - Prescriptions for ketorolac 10 mg Oral tablet - take 1 tablet by ORAL route every 8 hours As needed not to exceed 40 mg in 24hrs; 12 tablet. Benadryl 25 mg Oral Capsule - take 1 capsule by ORAL route every 6 hours As needed; 20 tablet. - Medication Reconciliation Form, Thank You Letter, Antibiotic Education, Prescription Opioid Use form. - Follow up: Private Physician; When: 1 - 2 days; Reason: Worsening of condition, Recheck today's complaints, Continuance of care, Re-evaluation by your physician. Follow up: Anthony Pennington MD; When: 1 - 2 days; Reason: Worsening of condition, Recheck today's complaints. Follow up: Alison Avitia MD; When: 1 - 2 days; Reason: Worsening of condition, Recheck today's complaints. - Problem is an acute exacerbation. - Symptoms have improved. Signatures: Dispatcher [employer] EDMS Jaycee Cain RN RN ls4 Tamela Villegas RN RN vc Daquan Mao MD MD mh7 Corrections: (The following items were deleted from the chart) 02:48 02:32 02/02/2020 02:32 Discharged to Home. Impression: Headache; Sinus Pain. Condition vc is Stable. Forms are Medication Reconciliation Form, Thank You Letter, Antibiotic Education, Prescription Opioid Use. Follow up: Private Physician; When: 1 - 2 days; Reason: Worsening of condition, Recheck today's complaints, Continuance of care, Re-evaluation by your physician. Follow up: Anthony Pennington; When: 1 - 2 days; Reason: Worsening of condition, Recheck today's complaints. Follow up: Alison Avitia; When: 1 - 2 days; Reason: Worsening of condition, Recheck today's complaints. Problem is an acute exacerbation. Symptoms have improved. mh7
--- NOTE | 2020-02-03 13:04 | RAD REPORT ---
EXAM DESCRIPTION: CT - Head Brain Wo Cont - 02/02/2020 5:52 am CLINICAL HISTORY: HEADACHE COMPARISON: None. TECHNIQUE: Head/brain axial images acquired without contrast. Coronal and sagittal reformats created . Exam performed according to departmental dose-optimization program which includes automated exposur e control, adjustment of mA and/or kV according to patient size, and/or use of iterative reconstructi on technique. FINDINGS: No midline shift, mass effect, intracranial hemorrhage, or hydrocephalus. Moderate, bilateral, globus pallidus calcifications. Bilateral ethmoidectomies. Partially-imaged bilateral maxillary sinus mucus retention cysts or polyps. Mastoid air cells clear. No significant skull lesion. IMPRESSION: No CT evidence of acute intracranial abnormality. Electronically signed by: Bassem Carrillo MD 02/01/2020 11:38 PM CDT Due to temporary technical issues with the PACS/Fluency reporting system, reports are being signed by the in house radiologist without review as a courtesy to ensure prompt reporting. The interpreting r adiologist is fully responsible for the content of the report.
[2020-02-05 10:46] VITALS: TEMP 97.7
[2020-02-05 10:59] VITALS: BP 156/82; O2SAT 97
== END 2020-02-02 02:48 | disposition home or self-care (01) ==
LOC: ER 21:36
DX: R51 Headache (principal); J34.89 Other specified disorders of nose and nasal sinuses
CPT/HCPCS: 85025; 80048; 36415; 85610; 80076; 85730; 81003; 70450; 99284; J2765; J1200; J7030

== ENCOUNTER 2022-02-09 16:02 | Emergency (ER) | payer OTHER ==
--- OUTSIDE RECORDS SUMMARY | 2022-02-09 16:06 | XMS REPORT | Continuity of Care Document ---
:1960 [facility] t Address [address] [place] [address] Care Team Providers Name Role Phone Asked, No Pcp Primary Care Physician Unavailable SUNDAY BUENO Attending Clinician Unavailable CARLOS BLANCHARD Attending Clinician Unavailable JAQUELIN SOLIZ Attending Clinician Unavailable SUNDAY BUENO Attending Clinician Unavailable BUNNY_NAVNEET Attending Clinician Unavailable Renay Wood NP Attending Clinician Matt Eason Testing Attending Clinician Unavailable CINDY FERNANDES Attending Clinician Unavailable CO19, NATI Attending Clinician Unavailable Blas De Leon MD Attending Clinician CARLOS BLANCHARD M.D. Attending Clinician Unavailable Daniel Song MD Attending Clinician JAQUELIN SOLIZ M.D. Attending Clinician Unavailable JAQUELIN SOLIZ Attending Clinician Unavailable SUNDAY BUENO M.D. Attending Clinician Unavailable LUC HURLEY Attending Clinician Unavailable LUC HURLEY M.D. Attending Clinician Unavailable SHIVA BENAVIDEZ M.D. Attending Clinician Unavailable SHERLYNAVNEET Admitting Clinician Unavailable JAQUELIN SOLIZ Admitting Clinician Unavailable Payers Payer Name Policy Type Policy Number Effective Date Expiration Date S patricia [facility] OPTIONS PPO [id number] 2019 2021 00:00:00 00:00:00 [employer] OPEN [id number] 2021 2024 CHOICE PPO 00:00:00 00:00:00 Problems Condition Condition Condition Status Onset Resolution Last Treating Co mments Source Name Details Category Date Date Treatment Clinician Date Hyperlipid Hyperlipid Disease Active U T emia, emia, 514 Health unspecifie unspecifie 00:00: d d 00 Reflux Reflux Disease Active UT esophagiti esophagiti 305 He alth s s 00:00: 00 Depression Depression Disease Active U T 3-03 Health 00:00: 00 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 Health disorder disorder 00:00: 00 Dysphagia Dysphagia Disease Active UT 10-03 Health 00:00: 00 History of History of Problem Resolve UT d Phys ici ans History of History of Problem Resolve UT H/O H/O d Physici colonoscop colonoscop an s y y History of History of Problem Resolve UT hemorrhoid hemorrhoid d Ph ysici s s ans 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) Shortness Shortness Problem Active UT of breath of breath Phys ici ans 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 Family History Family Member Diagnosis Comments Start Date Stop Date Source Mother Family history of [facility] Myofibrosis Father Family history of multiple [facility] sclerosis Social History Social Habit Start Date Stop Date Quantity Comments Source Exposure to Not sure [facility] SARS-CoV-2 (event) Alcohol intake 2016-07-11 2016-07-11 Current drinker [facility] 00:00:[facility] 00:00:00 of alcohol [facility] (finding) Tobacco use and 2016-05-25 2016-05-25 Never used SYBIL Acevedo exposure 00:00:00 [facility]:00:00 [facility] Sex Assigned At [birth year] SYBIL Acevedo 00:00:00 [facility]:00 [facility] Smoking Status Start Date Stop Date Source Tobacco smoking consumption unknown [facility] Never smoked tobacco [facility] Medications Ordered Filled Start Stop Current Ordering Indication Dosage Frequency Signature Comments Components Source Medication Medication Date Date Medication? Clinician (SIG) Name Name famotidine Yes Take by UT (Pepcid) 10 01-20 mouth if Heal th MG tablet 14:51: needed for 23 heartburn. pantoprazol Yes 40mg 40 mg. UT e 01-20 Health (ProtoNix) 14:51: 40 MG EC 03 tablet escitalopra Yes 20mg QD Take 20 mg UT m (Lexapro) 01-20 by mouth 1 He alth 20 MG 14:50: (one) time tablet 32 each day. nitroglycer Yes [id number] 1{patch QD Place 1 UT in 01-20 } patch on Health (Nitro-Dur) 00:00: the skin 1 0.1 MG/HR 00 (one) time patch each day. Place on hand for finger tip wounds escitalopra Yes 20mg QD Take 20 mg UT m (Lexapro) 01-07 by mouth 1 He alth 20 MG 15:43: (one) time tablet 09 each day. No known No No known UT medications 01-07 medication He alth 10:42: s 33 No known No No known UT medications 01-07 medication He alth 10:42: s 33 pantoprazol 2020-0 2021- No [id number] 40mg QD Take 1 UT e 01-07 tablet (40 Health (ProtoNix) 00:00: 04:59 mg total) 40 MG EC 00 :00 by mouth 1 tablet (one) time each day. famotidine No [id number] 20mg Take 1 UT (Pepcid) 20 8-05 08-06 tablet (20 H ealth MG tablet 00:00: 04:59 mg total) 00 :00 by mouth every night. levothyroxi Yes 25ug QD Take 25 UT ne 3-26 mcg by Health (Synthroid, 00:00: mouth 1 Levoxyl) 25 00 (one) time MCG tablet each day. levothyroxi 2020- No 25ug QD Take 25 UT ne 3-26 05-14 mcg by Health (Synthroid, 00:00: 00:00 mouth 1 Levoxyl) 25 00 :00 (one) time MCG tablet each day. pantoprazol Yes TAKE ONE UT e 3-04 TABLET BY Health (ProtoNix) 00:00: MOUTH ONCE 40 MG EC 00 DAILY ONE tablet HOUR BEFORE FOOD IN THE MORNING pantoprazol 2020- No TAKE ONE U T e 3-04 05-14 TABLET BY Health (ProtoNix) 00:00: 00:00 MOUTH ONCE 40 MG EC 00 :00 DAILY ONE tablet HOUR BEFORE FOOD IN THE MORNING levothyroxi 2019-06 Yes 25 UT ne 0-15 microgram Health (Synthroid, 00:00: = 1 tab, Levoxyl) 25 00 PO, QAM, 0 MCG tablet Refill(s) levothyroxi 2019-06 Yes 25 UT ne 0-15 microgram Health (Synthroid, 00:00: = 1 tab, Levoxyl) 25 00 PO, QAM, 0 MCG tablet Refill(s) levothyroxi 2019-06 Yes 25 UT ne 0-15 microgram Health (Synthroid, 00:00: = 1 tab, Levoxyl) 25 00 PO, QAM, 0 MCG tablet Refill(s) levothyroxi 2019-06 Yes 25 UT ne 0-15 microgram Health (Synthroid, 00:00: = 1 tab, Levoxyl) 25 00 PO, QAM, 0 MCG tablet Refill(s) levothyroxi 2019-06 Yes 25 UT ne 0-15 microgram Health (Synthroid, 00:00: = 1 tab, Levoxyl) 25 00 PO, QAM, 0 MCG tablet Refill(s) levothyroxi 2019-06 Yes 25 UT ne 0-15 microgram Health (Synthroid, 00:00: = 1 tab, Levoxyl) 25 00 PO, QAM, 0 MCG tablet Refill(s) citalopram Yes 20 mg = 1 UT (CeleXA) 20 8-15 tab, PO, Heal th MG tablet 00:00: Daily, 0 00 Refill(s) citalopram 2020- No 20 mg = 1 U T (CeleXA) 20 8-15 05-14 tab, PO, Hea lth MG tablet 00:00: 00:00 Daily, 0 00 :00 Refill(s) pantoprazol Yes 40mg QD Take 40 mg UT e 7-17 by mouth 1 Health (ProtoNix) 00:00: (one) time 40 MG EC 00 each day. tablet pantoprazol No 40mg QD Take 40 mg UT e 7-17 08-05 by mouth 1 Health (ProtoNix) 00:00: 00:00 (one) time 40 MG EC 00 :00 each day. tablet Missing or Yes CHOLESTENE [facility] Non-Formula 2-03 FOR [facility] ry 15:49: CHOLESTROL Medical Medication 47 OTC1 Center CAPSULE DAILY . citalopram Yes 20mg QD Take [address] (CELEXA) 20 2-03 by mouth [facility] MG tablet 15:49: daily. Medica l 47 Center pantoprazol Yes 40mg QD Take [address] e 2-03 by mouth [facility] (PROTONIX) 15:49: daily. Medic al 40 MG 47 Center tablet lactobacill Yes 1{capsu QD Take [address] us 2-03 le} capsule by [facility] rhamnosus, 15:49: mouth Medica l GG, 47 daily. Center (CULTURELLE ) 10 billion cell capsule cetirizine cetirizine No cetirizine [place] 10 mg 10 mg 10 mg da tablet tablet tablet [facility] escitalopra escitalopra No escitalopr [place] m 20 mg m 20 mg am 20 mg da tablet tablet tablet [facility] famotidine famotidine No famotidine [place] 20 mg 20 mg 20 mg da tablet tablet tablet [facility] hydroxyzine hydroxyzine No hydroxyzin [place] HCl 50 mg HCl 50 mg e HCl 50 d a tablet tablet mg tablet [facility] ivermectin ivermectin No ivermectin [place] 3 mg tablet 3 mg tablet 3 mg d a tablet [facility] levothyroxi levothyroxi No levothyrox [place] ne 25 mcg ne 25 mcg ine 25 mcg da tablet tablet tablet [facility] methylpredn methylpredn No methylpred [place] isolone 4 isolone 4 nisolone 4 da mg tablets mg tablets mg tablets [facility] in a dose in a dose in a dose al pack pack pack [facility] Program pantoprazol pantoprazol No pantoprazo [place] e 40 mg e 40 mg le 40 mg da tablet,clifford tablet,clifford tablet,del [facility] yed release yed release ayed a l release [facility] Program atorvastati atorvastati No atorvastat [place] n 20 mg n 20 mg in 20 mg da tablet tablet tablet [facility] Gaviscon Gaviscon Yes AUTOMOBILE MECHANIC HELPER TAKE UT CHEW CHEW DIRECTED. Physici ans Pantoprazol Pantoprazol Yes AUTOM[employer]BI[employer] MECHANIC HELPER 1 QD TAKE 1 UT e Sodium 40 e Sodium 40 TABLET Physici MG Oral MG Oral DAILY. ans Tablet Tablet Delayed Delayed Release Release Lexapro 10 Lexapro 10 Yes AUTOM[employer]CH[employer] HELPER 1 QD TAKE 1 U T MG Oral MG Oral TABLET Physici Tablet Tablet DAILY. ans Levothyroxi Levothyroxi Yes AUT[employer] MECH[employer]IC HELPER 1 QD TAKE 1 UT ne Sodium ne Sodium TABLET Phy sici TABS TABS DAILY. ans Immunizations Ordered Immunization Filled Immunization Date Status Commen ts Source Name Name COVID-19, mRNA, COVID-19, mRNA, 2021-06-24 Completed Edwin vernon LNP-S, PF, 100 LNP-S, PF, 100 16:49:02 [facility] mcg/0.5 mL dose mcg/0.5 mL dose Outr each Program (Moderna) (Moderna) Vital Signs Vital Name Observation Time Observation Value Comments Source Systolic blood 2022-01-20 19:51:00 148 mm[Hg] [facility] pressure Diastolic blood 2022-01-20 19:51:00 90 mm[Hg] [facility] alth pressure Heart rate 2022-01-20 19:51:00 91 /min [facility] Body temperature 2022-01-20 19:51:00 37.22 Chacha [facility] Body weight 2022-01-20 19:51:00 56.155 kg [facility] BMI 2022-01-20 19:51:00 19.39 kg/m2 [facility] Systolic blood 2021-01-07 15:40:00 112 mm[Hg] [facility] pressure Diastolic blood 2021-01-07 15:40:00 74 mm[Hg] [facility] alth pressure Heart rate 2021-01-07 15:40:00 84 /min [facility] Body temperature 2021-01-07 15:40:00 36.39 Chacha [facility] Body weight 2021-01-07 15:40:00 55.112 kg [facility] BMI 2021-01-07 15:40:00 19.03 kg/m2 [facility] Systolic blood 2020-10-16 15:32:00 133 mm[Hg] [facility] l[facility] pressure Diastolic blood 2020-10-16 15:32:00 77 mm[Hg] UT [facility] alth pressure Heart rate 2020-10-16 15:32:00 77 /min [facility] Body temperature 2020-10-16 15:32:00 36.61 Chacha [facility] Body height 2020-10-16 15:32:00 170.2 cm [facility] Body weight 2020-10-16 15:32:00 55.067 kg [facility] BMI 2020-10-16 15:32:00 19.01 kg/m2 [facility] Systolic blood 2020-10-13 20:46:00 124 mm[Hg] [facility] l[facility] pressure Diastolic blood 2020-10-13 20:46:00 77 mm[Hg] UT [facility] alth pressure Heart rate 2020-10-13 20:46:00 75 /min [facility] Body height 2020-10-13 20:46:00 170.2 cm [facility] Body weight 2020-10-13 20:46:00 54.069 kg [facility] BMI 2020-10-13 20:46:00 18.67 kg/m2 [facility] Systolic blood 2020-07-09 11:12:00 117 mm[Hg] Location: RUE; [facility] pressure Position: Sitting Diastolic blood 2020-07-09 11:12:00 80 mm[Hg] Location: RUE; [facility] pressure Position: Sitting Weight 2020-07-09 11:12:00 120.4375 [lb_av] [facility] Body mass index 2020-07-09 11:12:00 19.44 kg/m2 [facility] (BMI) [Ratio] Body temperature 2020-07-09 11:12:00 96.4 [degF] [facility] Heart Rate 2020-07-09 11:12:00 87 /min [facility] Systolic blood 2020-05-19 10:53:00 128 mm[Hg] Location: LUE; [facility] pressure Position: Sitting Diastolic blood 2020-05-19 10:53:00 83 mm[Hg] Location: LUE; [facility] pressure Position: Sitting Body height 2020-05-19 10:53:00 66 [in_us] [facility] Weight 2020-05-19 10:53:00 120 [lb_av] [facility] Body mass index 2020-05-19 10:53:00 19.37 kg/m2 [facility] (BMI) [Ratio] Body temperature 2020-05-19 10:53:00 96.5 [degF] Method: [facility] Temporal Heart Rate 2020-05-19 10:53:00 85 /min [facility] Systolic blood 2020-03-31 12:29:00 122 mm[Hg] Location: LUE; [facility] pressure Position: Sitting Diastolic blood 2020-03-31 12:29:00 86 mm[Hg] Location: LUE; [facility] pressure Position: Sitting Body height 2020-03-31 12:29:00 66 [in_us] [facility] Weight 2020-03-31 12:29:00 123.25 [lb_av] [facility] Body mass index 2020-03-31 12:29:00 19.89 kg/m2 [facility] (BMI) [Ratio] Body temperature 2020-03-31 12:29:00 98.7 [degF] [facility] Heart Rate 2020-03-31 12:29:00 91 /min [facility] Systolic blood 2020-02-28 13:06:00 122 mm[Hg] Location: LUE; [facility] pressure Position: Sitting Diastolic blood 2020-02-28 13:06:00 86 mm[Hg] Location: LUE; [facility] pressure Position: Sitting Body height 2020-02-28 13:06:00 66 [in_us] [facility] Weight 2020-02-28 13:06:00 124.5 [lb_av] [facility] Body mass index 2020-02-28 13:06:00 20.09 kg/m2 [facility] (BMI) [Ratio] Body temperature 2020-02-28 13:06:00 98.2 [degF] [facility] Heart Rate 2020-02-28 13:06:00 76 /min [facility] Systolic blood 2019-08-06 09:25:00 118 mm[Hg] Location: LUE; [facility] pressure Position: Sitting Diastolic blood 2019-08-06 09:25:00 73 mm[Hg] Location: LUE; [facility] pressure Position: Sitting Body height 2019-08-06 09:25:00 66 [in_us] [facility] Weight 2019-08-06 09:25:00 127.25 [lb_av] [facility] Body mass index 2019-08-06 09:25:00 20.54 kg/m2 [facility] (BMI) [Ratio] Body temperature 2019-08-06 09:25:00 96.8 [degF] Method: Oral [facility] Heart Rate 2019-08-06 09:25:00 73 /min [facility] BP Systolic 2018-08-28 14:38:00 122 mm[Hg] Location: LUE; [facility] Position: Sitting BP Diastolic 2018-08-28 14:38:00 77 mm[Hg] Location: LUE; [facility] Position: Sitting Weight 2018-08-28 14:38:00 126.5 [lb_av] [facility] Body Mass Index 2018-08-28 14:38:00 20.42 kg/m2 [facility] Calculated Heart Rate 2018-08-28 14:38:00 90 /min Location: L [facility] Carotid; Procedures Procedure Date / Time Performing Clinician Source Performed COMPREHENSIVE METABOLIC 2022-01-20 21:46:00 [facility] PANEL CK 2022-01-20 21:46:00 [facility] C-REACTIVE PROTEIN 2022-01-20 21:46:00 [facility] CBC AND DIFFERENTIAL 2022-01-20 21:46:00 [facility] Heal th SEDIMENTATION RATE, 2022-01-20 21:46:00 [facility] Heal h AUTOMATED FL UPPER GI SERIES 2020-10-27 19:24:00 [facility] FL UPPER GI SERIES 2020-10-27 19:24:00 [facility] XR ABDOMEN 1 VIEW 2020-10-22 14:59:03 [facility] XR ABDOMEN 1 VIEW 2020-10-22 14:59:03 [facility] . [facility] - 2020-08-27 00:00:00 [facility] COVID-19/SARS-Cov-2 US VASCULAR SCREENING 2020-07-16 15:04:20 [facility] HEART SCAN PLUS CT HEART SCAN PLUS W 2020-07-16 14:17:36 [facility] PHYSICIAN ORDER Complete PFTs w/DLCO and 2020-07-09 00:00:00 [facility] Lung Volumes [Q] SARS CoV 2 RNA (COVID 2020-07-09 00:00:00 [facility] 19), QUALITATIVE NAAT (38420) MAMMO BREAST SCREEN 2020-05-14 21:33:59 [facility] TOMOSYNTHESIS BILATERAL BONE DENSITY 2020-05-14 20:57:42 [facility] [LH] TSH+Free T4 2018-08-30 00:00:00 [facility] [QLH] CMP W/EGFR 2018-08-28 00:00:00 [facility] [QLH] CBC (INCLUDES 2018-08-28 00:00:00 [facility] DIFF/PLT) [QLH] CREATINE KINASE, 2018-08-28 00:00:00 [facility] TOTAL [QLH] URINALYSIS, 2018-08-28 00:00:00 [facility] COMPLETE History of [facility] section History of Tonsillectomy [facility] History of Cataract [facility] surgery History of Shoulder [facility] surgery History of Abdominoplasty [facility] History of Kristina [facility] fundoplication laparoscopic History of Paraesophageal [facility] hiatal hernia repair Plan of Care Planned Activity Planned Date Details Comments Source Future Scheduled 2022-02-02 [facility] 22:54:03 SCREENING [code = COLONOSCOPY SCREENING] Future Scheduled 2022-02-02 SHINGLES VACCINES (1 [facility] Test 22:54:03 of 2) [code = SHINGLES VACCINES (1 of 2)] Future Scheduled 2022-02-[address] [facility] Test 22:54:03 SCREENING [code = BREAST CANCER SCREENING] Future Scheduled 2022-02-02 INFLUENZA VACCINE [facility] Test 22:54:03 [code = INFLUENZA VACCINE] Future Scheduled 2022-02-02 HEPATITIS B VACCINES [facility] Test 22:54:03 (1 of 3 - 3-dose series) [code = HEPATITIS B VACCINES (1 of 3 - 3-dose series)] Future Scheduled 2022-02-02 [facility]03 (#1) [code = COVID-19 VACCINE (#1)] Future Scheduled 2022-02-02 Hepatitis C [facility] 22:54:03 screening (procedure) [code = 380715438] Future Scheduled 2022-02-02 [facility]ening [facility] Test 22:54:03 malignant neoplasm of cervix (procedure) [code = 230979721] Diagnostic Test 2020-07-09 Complete PFTs w/DLCO [facility] Pending 00:00:00 and Lung Volumes [code = Complete PFTs w/DLCO and Lung Volumes] Future Scheduled COVID-19 VACCINE (1) [facility] Test [code = COVID-19 VACCINE (1)] Future Scheduled [facility]atitis [facility] screening (procedure) [code = 057726222] Future Scheduled [facility]ening for [facility] Test malignant neoplasm of cervix (procedure) [code = 723181009] Future Scheduled [facility]OS[facility] SCREENING [code = COLONOSCOPY SCREENING] Future Scheduled SHINGLES VACCINES [facility] (#1) [code = SHINGLES VACCINES (#1)] Future Scheduled INFLUENZA VACCINE [facility] Test [code = INFLUENZA VACCINE] Future Scheduled BREAST CANCER [facility] Test SCREENING [code = BREAST CANCER SCREENING] Encounters Start End Encounter Admission Attending Care Care Encounter Source Date/Time Date/Time Type Type Clinicians Facility Department ID 2022-02-04 [facility] [id number] [place] 16:22:19 [id number] [facility] 2022-01-24 [facility] [id number] [place] 10:02:03 [id number] [facility] 2022-01-06 [facility] [id number] [place] 08:53:41 [id number] [facility] 2021-10-27 Outpatient ALLEGRA[facility] [id number] [place] 01:04:13 SUNDAY [id number] [facility] 2021-10-26 [facility] [id number] UT 10:54:50 [id number] [facility] 2021-10-19 [facility] [id number] UT 14:46:04 [id number] [facility] 2021-10-06 Outpatient ALLEGRA, [facility] [id number] [place] 01:03:44 SUNDAY [id number] [facility] 2021-01-07 Outpatient LO, [facility] [id number] [place] 12:16:47 [facility] 2020-10-18 Outpatient HEYDI, [facility] [id number] [place] 12:30:04 [facility] 2023-01-26 2023-01-26 Outpatient LO, [facility] [id number] [place] 14:00:00 14:00:00 [facility] 2022-03-03 2022-03-03 [facility] [id number] [place] 14:00:00 14:00:00 [facility] 2022-03-03 2022-03-03 [facility] [id number] [place] 13:00:00 13:00:00 [facility] 2022-02-11 2022-02-11 Outpatient ALLEGRA, [facility] [id number] [place] 10:30:00 10:30:00 SUNDAY Health 2022-01-20 2022-01-20 Office MICHELLE Blanchard 6410 [id number] [place] 14:30:00 15:43:23 Visit Carlos ENGLISH [id number] Health 9.2.7.2.686 [id number] 2021-07-28 2021-07-28 Outpatient BUENO, [facility] [id number] [facility] 11:30:00 23:59:00 SUNDAY 2021-07-07 2021-07-07 Outpatient BUENO, [facility] [id number] [facility] 11:36:00 23:59:00 SUNDAY 2021-06-24 2021-06-24 Outpatient [facility] [id number] [place] 05:09:00 05:09:00 [facility] 2021-06-24 2021-06-24 [facility] - [id number] [place] 00:00:00 00:00:00 Mil Ng MD: [address] [facility] [id number] h , Ph. Program 2021-06-23 2021-06-23 Outpatient [facility] [id number] [place] 12:30:00 12:30:00 [facility] 2021-04-19 2021-04-19 Renay Jc 1.2.840.1 [id number] Methodi 00:00:00 00:00:[id number] 3.430.2.7 Hospit a .3.620818 l .8 2021-01-07 2021-01-07 Office MICHELLE Blanchard 6410 [id number] [place] 10:33:02 12:15:44 Visit Carlos ENGLISH [id number] Health 9.2.7.2.686 [id number] 2020-10-29 2020-10-29 Lab Dustin UTP [id number] [place] 15:30:00 16:15:54 Covid19 DUSTIN 350.1.13.58 Health Testing 9.2.7.2.686 [id number] 2020-10-23 2020-10-23 EXT [facility] OP Heydi, EXT MSRDP [id number] [place] 00:00:00 00:00:00 Jaquelin LOCATION 350.1.13.58 H ealth 9.2.7.2.686 [id number] 2020-10-23 2020-10-23 EXT [facility] OP Heydi, EXT MSRDP [id number] [place] 00:00:00 00:00:00 Jaquelin LOCATION 350.1.13.58 H ealth 9.2.7.2.686 [id number] 2020-10-16 2020-10-[address] [facility] [id number] [place] 10:27:01 11:11:31 Visit Jaquelin [facility]13.58 [facility] 9.2.7.2.686 [facility] [id number] 2020-10-13 2020-10-13 Office Allegra [facility] [id number] [place] 15:17:02 16:10:28 Visit Sunday SUGAR 350.1.13.58 [facility] 9.2.7.2.686 [address] [id number] AND 3 WOMENS 2020-10-13 2020-10-13 EXT [facility] OP Bueno, EXT MSRDP 1.2.840.114 [id number] [place] 00:00:00 00:00:00 Sunday LOCATION 350.1.13.58 H ealth 9.2.7.2.686 [id number] 2020-10-13 2020-10-13 EXT [facility] OP Bueno, EXT MSRDP 1.2.840.114 [id number] [place] 00:00:00 00:00:00 Sunday LOCATION 350.1.13.58 H ealth 9.2.7.2.686 [id number] 2020-09-03 2020-09-03 Appointmen DOM PFT [facility] UTP [id number] [place] 10:30:00 10:30:00 t; DOM Sagar sici PFT ans 2020-08-31 2020-08-31 Appointmen CO19, [facility] UTP [id number] [place] 14:00:00 14:00:00 t; CO19, PROVIDERROS Sally lal [facility] 2020-07-16 2020-07-16 [facility] 1.2.840.1 [id number] Methodi 08:00:00 23:59:00 Encounter Blas [id number] 3.430.2.7 Hospit a .3.332200 l .8 2020-07-16 2020-07-16 Travel 1.2.840.1 [id number] Methodi 00:00:00 00:00:[address] 3.430.2.7 0.2.7.3.698 Ho spita .3.836857 084.8 l .8 2020-07-09 2020-07-09 AppointMICHELLE [place] Rheumat[facility] [id number] [place] 11:00:00 11:00:00 t; Edwardo MARTINES M.D. ans SHERVIN, M.D. 2020-07-08 2020-07-08 Travel 1.2.840.1 [id number] Methodi 00:00:00 00:00:[address] 3.430.2.7 0.2.7.3.698 Ho spita .3.923390 084.8 l .8 2020-07-01 2020-07-01 Travel 1.2.840.1 [id number] [id number] Methodi 00:00:00 00:00:[address] 3.430.2.7 0.2.7.3.698 Ho spita .3.578053 084.8 l .8 2020-07-01 2020-07-01 Transcribe Haley, 1.2.840.1 [id number] Methodi 00:00:00 00:00:00 Orders Blas 92914.1.[address] 3.430.2.7 Hospit a .3.654989 l .8 2020-05-27 2020-05-27 Hospital Hold, 1.2.840.1 [id number] Methodi 11:08:57 23:59:00 Encounter Daniel Alicia [id number] 3.430.2.7 Hospit a .3.783794 l .8 2020-05-27 2020-05-27 Hospital Hold, 1.2.840.1 [id number] Methodi 11:08:18 23:59:00 Encounter Daniel Alicia 47279.1.[address] 3.430.2.7 Hospit a .3.176391 l .8 2020-05-27 2020-05-27 Hospital Hold, 1.2.840.1 [id number] Methodi 11:07:33 11:07:33 Encounter Daniel Alicia 28676.1.[address] 3.430.2.7 Hospit a .3.203972 l .8 2020-05-27 2020-05-27 Hospital Hold, 1.2.840.1 [id number] 97685 Methodi 11:06:52 11:06:52 Encounter Daniel Alicia 40771.1.[address] 3.430.2.7 Hospit a .3.994048 l .8 2020-05-19 2020-05-19 AppointMICHELLE Dunne [place] [id number] [place] 10:45:00 10:45:00 t; JAQUELIN SOLIZ M.D. Invasive Delon HAMMER M.D. [facility] 2020-05-14 2020-05-14 Hospital Hold, 1.2.840.1 [id number] Methodi 14:38:07 23:59:00 Encounter Daniel Alicia 49785.1.[address] 3.430.2.7 Hospit a .3.788737 l .8 2020-05-14 2020-05-14 Hospital Hold, 1.2.840.1 [id number] Methodi 14:30:00 14:37:00 Encounter Daniel Alicia 38690.1.[address] 3.430.2.7 Hospit a .3.107464 l .8 2020-05-14 2020-05-14 Travel 1.2.840.1 1.2.826.898 [id number] Methodi 00:00:00 00:00:[address] 3.430.2.7 0.2.7.3.698 Ho spita .3.317097 084.8 l .8 2020-04-06 2020-04-06 Travel 1.2.840.1 1.2.262.265 8426 [id number] Methodi 00:00:00 00:00:[address] 3.430.2.7 0.2.7.3.698 Ho spita .3.363425 084.8 l .8 2020-04-06 2020-04-06 Transcribe Renay Wood 1.2.840.1 [id number] Methodi 00:00:00 00:00:[address] 3.430.2.7 Hospit a .3.979748 l .8 2020-03-31 2020-03-31 Appointmen HEYDI, [facility] [id number] [place] 12:45:00 12:45:00 t; JAQUELIN SOLIZ M.D. Invasive Delon HAMMER M.D. [facility] ([facility]) 2020-03-24 2020-03-24 Outpatient U HEYDI [facility] 7507 [facility] 11:56:00 21:05:00 JAQUELIN 2020-03-19 2020-03-19 Outpatient HEYDI [facility] 7508 [facility] 14:04:00 23:59:00 JAQUELIN 2020-02-28 2020-02-28 MICHELLE Stein [place] [id number] [place] 12:45:00 12:45:00 t; JAQUELIN SOLIZ M.D. Invasive Physici TODD, M.D. [facility] a [facility]) 2019-11-19 2019-11-19 MICHELLE Stein Minimally [id number] [place] 14:45:00 14:45:00 t; JAQUELIN SOLIZ M.D. Invasive Physici TODD, M.D. [facility]) 2019-10-25 2019-10-25 MICHELLE Stein Minimally [id number] [place] 11:30:00 11:30:00 t; JAQUELIN SOLIZ M.D. Invasive Physici TODD, M.D. [facility]) 2019-10-17 2019-10-17 Outpatient HEYDI GAURAV REDD 0065 [facility] 09:30:00 23:59:00 JAQUELIN 2019-09-03 2019-09-[address] [facility] [id number] [place] 14:15:00 14:15:00 t; Ace SALAZAR ans AMIT, M.D. 2019-08-06 2019-08-06 MICHELLE Stein Minimally [id number] [place] 09:00:00 09:00:00 t; JAQUELIN SOLIZ M.D. Invasive Physici TODD, M.D. [facility] a [facility]) 2019-07-31 2019-07-31 Outpatient ANITA, [facility] 7506 [facility] 07:39:00 23:59:00 LUC 2019-07-15 2019-07-15 MICHELLE Tomlinson UTP [id number] [place] 15:15:00 15:15:00 t; Ace SALAZAR ans AMIT, M.D. 2019-06-28 2019-06-28 MICHELLE Tomlinson UTP [id number] [place] 14:30:00 14:30:00 t; Ace SALAZAR ans AMIT, M.D. 2019-06-21 2019-06-[address] [facility] [id number] [place] 11:00:00 11:00:00 t; Ace SALAZAR ans AMIT, M.D. 2019-06-14 2019-06-14 [facility] ALLEGRA, MICHELLE [facility] [id number] [place] 13:00:00 13:00:00 t; Ace SALAZAR ans AMIT, M.D. 2019-06-11 2019-06-11 [facility] XAVI [facility] UTP [id number] [place] 11:00:00 11:00:00 t; Ace CALLE Ph, ans NIRAV, M.D. 2019-06-11 2019-06-11 Outpatient [facility] 7503 [facility] 10:20:00 10:20:00 2019-03-27 2019-03-27 Outpatient MH [facility] 7504 [facility] 11:33:00 11:33:00 2019-03-27 2019-03-27 [facility] BUENO, [facility] [id number] [place] 11:30:00 11:30:00 t; Ace SALAZAR ans AMIT, M.D. 2019-03-18 2019-03-18 [facility] XAVI, [facility] UTP [id number] [place] 14:30:00 14:30:00 t; Ace CALLE Ph, ans NIRAV, M.D. 2019-03-18 2019-03-18 [facility] 14:13:00 14:13:00 2018-08-28 2018-08-28 [facility] MICHELLE BLANCHARD Rheumatolog 49 [id number] [place] 14:00:00 14:00:00 t; Edwardo MARTINES M.D. ans SHERVIN, M.D. 2018-08-23 2018-08-23 [facility] MICHELLE [facility] [id number] [place] 14:00:00 14:00:00 t; Gary MARTINES M.D. ans SHERVIN, M.D. 2018-01-17 2018-01-17 [facility] RE[facility] [id number] [place] 10:00:00 10:00:00 t; SHIVA BENAVIDEZ M.D. P hysici HANI, M.D. ans 2017-09-14 2017-09-[address] [facility] UTP [id number] [place] 13:00:00 13:00:00 t; Gary MARTINES M.D. ans SHERVIN, M.D. Results Test Description Test Time Test Comments Results Result Comments Source Sedimentation rate, automated 2022-01-21 17:00:00 Test Item Value Reference Range Interpretation Comme nts SED RATE BY MODIFIED 6 mm/h See_Comment [Autom ated message] The WESTERGREN (test code system which generated this = 4537-7) result transmit karishma reference range : < OR = 30. The reference r mayra was not used to interpr et this result as jet l/abnormal. RAC (test code = RAC) Performing Organization Information: ? ?Site ID: RGA ? ?Name: [facility] ? ?Address: [address] [place] [address] ? ?Director: JULISA LANDAVERDE MD [facility]-reactive [id number] 17:00:00 Test Item Value Reference Range Interpretation Comments C-REACTIVE 3.7 mg/L See_Comment [Automated PROTEIN (test message] The s ystem code = 1987-5) which generat ed this result transmitted reference range : <=8.0. The reference range was not used to interpret this result as normal/abnormal . RAC (test code Performing = RAC) Organization Information: ? ?Site ID: RGA ? ?Name: [facility] ? ?Address: [address] [place] [address] ? ?Director: JULISA LANDAVERDE MD [facility] and [id number] 17:00:00 Test Item Value Reference Range Interpretation Comments WHITE BLOOD CELL See_Comment [Automated COUNT (test code = message] The 6690-2) system which generated this result transmitted reference range : 3.8 - 10.8 Thousand/uL. Th e reference range was not used to interpret this result as normal/abnormal . RED BLOOD CELL See_Comment [Automated COUNT (test code = message] The 789-8) system which generated this result transmitted reference range : 3.80 - 5.10 Million/uL. The reference range was not used to interpret this result as normal/abnormal . HEMOGLOBIN (test 13 g/dL 11.7-15.5 code = 718-7) HEMATOCRIT (test 38.7 % 35-45 code = 4544-3) MCV (test code = 87.4 fL 80-100 787-2) MCH (test code = 29.3 pg 27-33 785-6) MCHC (test code = 33.6 g/dL 32-36 786-4) RDW (test code = 14.2 % 11-15 788-0) PLATELET COUNT See_Comment [Automated (test code = message] The 777-3) system which generated this result transmitted reference range : 140 - 400 Thousand/uL. Th e reference range was not used to interpret this result as normal/abnormal . MPV (test code = 11.1 fL 7.5-12.5 776-5) ABSOLUTE See_Comment [Automated NEUTROPHILS (test message] T he code = 751-8) system which generated this result transmitted reference range : 1500 - 7800 cells/uL. The reference range was not used to interpret this result as normal/abnormal . ABSOLUTE See_Comment [Automated LYMPHOCYTES (test message] T he code = 731-0) system which generated this result transmitted reference range : 850 - 3900 cells/uL. The reference range was not used to interpret this result as normal/abnormal . ABSOLUTE MONOCYTES See_Comment [Automat ed (test code = message] The 742-7) system which generated this result transmitted reference range : 200 - 950 cells/uL. The reference range was not used to interpret this result as normal/abnormal . ABSOLUTE See_Comment [Automated EOSINOPHILS (test message] T he code = 711-2) system which generated this result transmitted reference range : 15 - 500 cells/uL. The reference range was not used to interpret this result as normal/abnormal . ABSOLUTE BASOPHILS See_Comment [Automat ed (test code = message] The 704-7) system which generated this result transmitted reference range : 0 - 200 cells/u L. The reference range was not used to interpr et this result as normal/abnormal . NEUTROPHILS (test 44.8 % code = 770-8) LYMPHOCYTES (test 41.1 % code = 736-9) MONOCYTES (test 6.7 % code = 5905-5) EOSINOPHILS (test 6.3 % code = 713-8) BASOPHILS (test 1.1 % code = 706-2) RAC (test code = Performing RAC) Organization Information: ? ?Site ID: RGA ? ?Name: [facility] ? ?Address: [address] [place] [phone] ? ?Director: JULISA LANDAVERDE MD [facility] [id number] 17:00:00 Test Item Value Reference Range Interpretation Comments CREATINE KINASE, 46 U/L 29-143 TOTAL (test code = 2157-6) RAC (test code = RAC) Performing Organization Information: ? ?Site ID: RGA ? ?Name: [facility] ? ?Address: [address] [place] [phone] ? ?Director: JULISA LANDAVERDE MD [facility] [id number] 17:00:00 Test Item Value Reference Range Interpretation Comments GLUCOSE (test code 88 mg/dL 65-99 ? = 2345-7) Fasting referen ce interval UREA NITROGEN 17 mg/dL 7-25 (BUN) (test code = 3094-0) CREATININE (test 1.04 mg/dL 0.5-1.05 code = 2160-0) EGFR (test code = See_Comment The eGFR i s based [id number]) on the CKD-EPI 2020 equation. To calculate the n ew eGFR from a previous Creatinine or Cystatin Cresul t, go to https://www.kid ne y.org/profmarilee na rita/kdoqi/gfr%5F ca lculator [Automated message] The system which generated this result transmitted reference range : > OR = 60 mL/min/1.73m2. The reference range was not used to interpr et this result as normal/abnormal . BUN/CREATININE NOT APPLICABLE See_Comment [Automated RATIO (test code = message] The 3097-3) system which generated this result transmitted reference range : 6 - 22 (calc). The reference range was not used to interpr et this result as normal/abnormal . SODIUM (test code 139 mmol/L 135-146 = 2951-2) POTASSIUM (test 4.5 mmol/L 3.5-5.3 code = 2823-3) CHLORIDE (test 103 mmol/L 98-110 code = 2074-0) CARBON DIOXIDE 30 mmol/L 20-32 (test code = 2027-9) CALCIUM (test code 9.3 mg/dL 8.6-10.4 = 65799-2) PROTEIN, TOTAL 6.3 g/dL 6.1-8.1 (test code = 2885-2) ALBUMIN (test code 3.8 g/dL 3.6-5.1 = 1751-7) GLOBULIN (test See_Comment [Automated code = 87795-2) message] The system which generated this result transmitted reference range : 1.9 - 3.7 g/dL (calc). The reference range was not used to interpret this result as normal/abnormal . ALBUMIN/GLOBULIN See_Comment [Automated RATIO (test code = message] The 175-0) system which generated this result transmitted reference range : 1.0 - 2.5 (calc ). The reference range was not used to interpr et this result as normal/abnormal . BILIRUBIN, TOTAL 0.5 mg/dL 0.2-1.2 (test code = 1974-2) ALKALINE 122 U/L 37-153 PHOSPHATASE (test code = 6768-6) AST (test code = 23 U/L 10-35 1920-8) ALT (test code = 13 U/L 6-29 1742-6) RAC (test code = Performing RAC) Organization Information: ? ?Site ID: RGA ? ?Name: [facility] ? ?Address: [address] [place] [phone] ? ?Director: JULISA LANDAVERDE MD [facility]. [facility] - COVID-19/LSCZ-[id number] 08:16:00 Test Item Value Reference Range Interpretation Comments SARS-CoV-2 REPORT ClinicalHistory: R06.02 N (test code = Shortness of stkrfpV79.9 SARS-CoV-2 REPORT) Limited scleroderma.COVID-19/ELTON S-CoV-2: COVID-19/SARS-CoV-2: Negative.BodySite: Nasopharyngeal.Special Requests: COVID-19/SARS-Cov-2.[facility] ode: [phone].ICDCode: R06.02,M34.9. [facility] vascular screening heart scan plus (self pay)2020-07-16 15:53:00 Vascular Diagnostic Laboratory Screening Report [id number] [facility], [place] [address], [place] [address] Pat.Name: KEN JOSE.ID: [id number] .Date: 07/16/2020 Refer.MD: BLAS DE LEON MD Exam Time: 8:08:00 AM Study Type:Screening Age: 10 1960,60Y Sex: FEMALE Sonogrphr: Pema Boles, RVSPat. Stat.:Outpatient Tape Vol: BE, Echo Event ID:[id number] Order ID: [id number] Reason for Study:Hyperlipidemia, unspecified. Vascular screening. Procedures: Ankle/brachial pressures, Colorflow, Grayscale/2D, Pulsedwave Doppler SUMMARY: -------Vascular Screening ResultsScreening results are brief snapshots designed to detect functionalabnormal findings of carotid artery disease, abdominal aorticaneurysms (AAA), and peripheral arterial disease (PAD). Please Note: Screening results do not replace a complete vascularexamination.Carotid Ar teryRight Internal Carotid Artery (X) Abnormal: Plaque present but no stenosis Left Internal CarotidArtery (X) Abnormal: Plaque present but no stenosis.Abdominal Aorta(X) Normal: No evidence of aneurysmal dilatation (less than 3cm).Ankle/Brachial Index(X) Normal: No evidence of peripheral arterial dis ease (PAD).Recommendations Your results are ABNORMAL. Please take these results to yourphysician anddiscuss them in further detail. If you do not have a physician you can call our [facility] to schedule an appointment at [phone]. FINDINGS:- Signed 07/16/2020 09:53 AMCristobal Ricci MD, RPVIInterlourdes counseling center, Radiology Results In - 07/16/2020 9:54 AM CST Vascular Diagnostic Laboratory Screening Report [address] [id number] Pat.Name: KEN JOSE Pat.ID: [id number] .Date: 07/16/2020 Refer.MD: BLAS DE LEON MD Exam Time: 8:08:00 AM Study Type:Screening Age: 9 1960,60Y Sex: FEMALE Sonogrphr: YULISSA Hernandez Pat. Stat.:Outpatient Tape Vol: BE, Echo Event ID:[id number] Order ID: [id number] Reason for Study:Hyperlipidemia, unspecified. Vascular screening. Procedures: Ankle/brachial pressures, Colorflow, Grayscale/2D, Pulsedwave Doppler SUMMARY: -------Vascular Screening ResultsScreening results are brief snapshots designed to detect functionalabnormal findings of carotid artery disease, abdominal aorticaneurysms (AAA), and peripheral arterial disease (PAD). Please Note: Screening results do not replace a complete vascularexamination.Carotid ArteryR ight Internal Carotid Artery (X) Abnormal: Plaque present but no stenosis Left Internal Carotid Artery (X) Abnormal: Plaque present but no stenosis.Abdominal Aorta(X) Normal: No evidence of aneurysmal dilatation (less than 3cm).Ankle/Brachial Index(X) Normal: No evidence of peripheral arterial disease (PAD).Recommendations Your results are ABNORMAL. Please take these results to yourphysician and discuss them in further detail. If you do not have a physician [facility] to schedule an appointment at [phone]. FINDINGS:------ Signed 07/16/2020 09:53 Danilo Ricci MD, [facility] Breast Screen Tomosynthesis [id number] 15:03:23 There is no mammographic evidence of malignancy. Continued monitoring of the clinical examination and annual mammography in 1 year is recommended. BI-RADS Category 2:Benign Finding(s) Workstation Name:[id number] A NEGATIVE X-RAY REPORT SHOULD NOT DELAY BIOPSY IF A DOMINANT OR CLINICALLY SUSPICIOUSMASS IS PRESENT. NOT ALL CANCERS ARE IDENTIFIED BY X-RAY. PROCEDURE:Bilateral Tomosynthesis Screening HISTORY:Patient is 60 years old and is seen for screening. The patient has a history of bilateral augmentation more than 10 years ago. The patient has the following family history of breast cancer: mat bernardal grandmother, at age 40, breast cancer and maternal aunt, at age 50, breast cancer. The patienthas no current palpable breast complaints. FILMS COMPARED:The present examination has been compared to prior imaging studies dated 12/10/2013, 04/14/2015, 05/19/2016 and 12/23/2017. MAMMOGRAM FINDINGS:There are scattered areas of fibroglandular densities. There are bilateral retro-pectoral saline implants. There are vascular calcifications in both breasts. Implants obscure portions of the breast tissue. No suspicious masses, calcifications or other abnormalities are seen. Interface, Radiology Results Incoming - 05/28/2020 9:03 AM CST PRO CEDURE:Bilateral Tomosynthesis Screening HISTORY:Patient is 60 years old and is seen for screening. The patient has a history of bilateral augmentation more than 10 years ago. The patient has the following family history of breast cancer: maternal grandmother, at age 40, breast cancer and maternal aunt, at age 50, breast cancer. The patient has no current palpable breast complaints. FILMS COMPARED:The present examination has been compared to prior imaging studies dated 12/10/2013, 04/14/2015, 05/19/2016 and 12/23/2017. MAMMOGRAM FINDINGS:There are scattered areas of fibroglandular densities. There are bilateral retro-pectoral saline implants. There are vascular calcifications in both breasts. Implants obscure portions of the breast tissue. No suspicious masses, calcifications or other abnormalities are seen. IMPRESSION:There is no mammographic evidence of malignancy. Continued monitoring of the clinical examination and annual mammography in 1 year is recommended. BI-RADS Category 2:Benign Finding(s) Workstation Name: [id number] A NEGATIVE X-RAY REPORT SHOULD NOT DELAY BIOPSY IF A DOMINANT OR CLINICALLY SUSPICIOUS MASS IS PRESENT. NOT ALL CANCERS ARE IDENTIFIED BY X-RAY.[facility] [id number] 21:36:38EXAMINATION: BONE DENSITY CLINICAL HISTORY: Evaluation for osteoporosis. COMPARISON: None. The results of this study expressed as bone mineral density (BMD) were as follows: AP spine (L1-L4)BMD: 1.017 g/zj9G-Lrvds: - 1.4Percent change: No prior for comparison. Dual Femur (Total Mean):BMD: 0.786 g/cm2T- Score: - 1.8Percent change: No prior for comparison. Impression: 1. 10 year probability of fracture:Major osteoporotic: 8.9%Hip:1.5% 2. BMD Spine (L1-L4) = osteopenia, Dual Femur (Total Mean)= osteopenia A copy of this scans including a report detailing these results will follow. Note: The world health organization (WHO) has classified the patient's T-score as follows: Above (-1) as normal(-1) to (-2.5) as low (osteopenia)Below (-2.5) as abnormally low (osteoporosis, increased fracture risk) For premenopausal women, men under the age 50 years, and children the WHO classification does not apply. In these individuals please assess bone mineral density with Z scores for each skeletal site examined.TW- [id number] Interface, Radiology Results Incoming - 05/14/2020 3:39 PM CST EXAMINATION: BONE DENSITYCLINICAL HISTORY: Evaluation for osteoporosis. COMPARISON: None.The results of this study expressed as bone mineral density (BMD) were as follows:AP spine (L1-L4)BMD: 1.017 g/kv4F-Hmesy: - 1.4Percent change: No prior for comparison.DualFemur (Total Mean):BMD: 0.786 g/ld9N-Ohixq: - 1.8Percent change: No prior for comparison.Impression:1. 10 year probability of fracture:Major osteoporotic: 8.9%Hip:1.5%2. BMD Spine (L1-L4) = osteopenia, Dual Femur (Total Mean)= osteopeniaA copy of this scans including a report detailing these results will follow.Note: The world health organization (WHO) has classified the patient's T-score as follows:Above (-1) as normal(-1) to (-2.5) as low (osteopenia)Below (-2.5) as abnormally low (osteoporosis, increased fracture risk)For premenopausal women, men under the age 50 years, and children the WHO classification does not apply. In these individuals please assess bone mineral density with Z scores for each skeletal site examined. [id number] [facility]] CBC (INCLUDES DIFF/PLT)2018-08-28 15:50:01 Test Item Value Reference Range Interpretation Comments WBC (test code = 6690-2) 4.8 {K/CMM} 3.7-10.4 RBC (test code = 789-8) 4.49 {M/CMM} 4.20-5.40 Hgb (test code = 718-7) 13.4 g/dl 12.0-16.0 Hct (test code = 34377-9) 40.8 % 36.0-48.0 MCV (test code = 787-2) 90.9 fL 80.0-98.0 MCH (test code = 785-6) 29.8 pg 27.0-31.0 MCHC (test code = 786-4) 32.8 g/dl 32.0-36.0 RDW; Above High Threshold (test 14.7 % 11.5-14.5 code = 788-0) Platelet (test code = 62208-7) 233 {K/CMM} 133-450 Mean Platelet Volume (test code 9.3 fL 7.4-10.4 = 15454-3) [facility]] [id number] 15:50:01 Test Item Value Reference Range Interpretation Comments Segmented Neutrophils (test code 52.7 % 45.0-75.0 = 21733-9) Monocytes (test code = 01829-7) 8.3 % 2.0-12.0 Lymphocytes (test code = 81939-2) 33.2 % 20.0-40.0 Eosinophils; Above High Threshold 4.9 % 0.0-4.0 (test code = 98288-5) Basophils (test code = 706-2) 0.9 % 0.0-1.0 Segs-Bands # (test code = 2.5 {K/CMM} 1.5-8.1 50648-3) Lymphocytes # (test code = 1.6 {K/CMM} 1.0-5.5 00323-5) Monocytes # (test code = 91499-1) 0.4 {K/CMM} 0.0-0.8 Eosinophils # (test code = 0.2 {K/CMM} 0.0-0.5 37081-4) [facility]] CMP [id number] 15:50:01 Test Item Value Reference Range Interpretation Comments Sodium Level 141 {mEq/l} 135-145 (test code = 2951-2) Potassium Level 4.3 {mEq/l} 3.5-5.1 (test code = 2823-3) Chloride Level 105 {mEq/l} 95-109 (test code = 5-0) Carbon Dioxide 29 {mEq/l} 24-32 (test code = 2027-9) AGAP (test code = 11.3 {mEq/l} 10.0-20.0 28264-7) Glucose Lvl (test 97 mg/dl 70-99 Adult refe rence range code = 2345-7) values reflec t the clinical guidel inesof the [place] Diabet es Association. Creatinine Lvl 0.80 mg/dl 0.50-1.40 (test code = 2160-0) Blood Urea 19 mg/dl 7-22 Nitrogen (test code = 3094-0) BUN/Creatinine 24 6-25 Ratio (test code = 3097-3) Total Protein; 5.9 g/dl 6.4-8.4 Below Low Threshold (test code = 2885-2) Albumin Lvl (test 3.5 g/dl 3.5-5.0 code = 1751-7) Globulin; Below 2.4 g/dl 2.7-4.2 Low Threshold (test code = 08863-2) A/G Ratio (test 1.5 0.7-1.6 code = 1759-0) Calcium Level 9.2 mg/dl 8.5-10.5 Total (test code = 23001-4) ALT (test code = 26 u/l 0-65 1743-4) AST (test code = 20 u/l 0-37 42123-7) Alk Phos (test 112 u/l 39-136 code = 1783-0) Bili Total (test 0.2 mg/dl 0.2-1.3 code = 1974-2) eGFR (test code = 81 The eGFR i s calculated 38952-4) {ML/MIN/1.7} using the CKD-E PI formula. In [...] National Kidney Disease Education Progr am(NKDEP) which additionfaith johnson recommends that when the eGFR is used in patientswith ex tremes of body mass index for purposes of devon g dosing, the eGFR should be multiplied by t he estimated BMI. [facility]] CREATINE KINASE, [id number] 15:50:01 Test Item Value Reference Range Interpretation Comments Creatine Kinase (test code = 2157-6) 40 u/l 12-191 [facility]] URINALYSIS, [id number] 15:50:01 Test Item Value Reference Range Interpretation Comments UA Color (test code = 5778-6) Yellow UA Turbidity (test code = 30041-1) Clear Clear UA Spec Grav (test code = 5810-7) 1.018 <=1.030 UA pH (test code = 5803-2) 7.0 5.0-8.0 UA Protein (test code = 68916-1) Negative Negative UA Glucose (test code = 52058-1) Negative Negative UA Ketones (test code = 39566-5) Negative Negative UA Bili (test code = 5770-3) Negative Negative UA Blood (test code = 5794-3) Negative Negative UROBILINOGEN (test code = 35383-9) <=1.0 0.1-1.0 UA Nitrite (test code = 5802-4) Negative Negative UA Leuk Est; Abnormal (test code = Trace Negative A 5799-2) UA RBC (test code = 88127-6) 1 {/HPF} 0-2 UA WBC (test code = 28327-4) 3 {/HPF} 0-5 UA Mucus (test code = 8247-9) Few None Seen UA Sq Epi (test code = 11140-0) Occasional Few [facility]
[2022-02-09 16:24] LABS: Absolute Lymphocytes (CBC) 1.7 K/uL (0.7-4.9); Hematocrit 38.8 % (36.0-45.0); MCV 87.7 fL (80-100); MPV 8.3 fL (7.6-11.3); RBC Red Blood Cell Count 4.43 M/uL (3.86-4.86)
[2022-02-09 16:35] LABS: Potassium 3.8 mmol/L (3.5-5.1)
[2022-02-09 16:40] LABS: Protime INR 1.04
--- NOTE | 2022-02-09 16:40 | RAD REPORT ---
EXAM DESCRIPTION: CT - Ct Stroke Brain Wo Cont - 02/09/2022 4:31 pm CLINICAL HISTORY: Left eye vision changes and difficulty speaking CVA COMPARISON: Head Brain Wo Cont dated 02/01/2020 TECHNIQUE: All CT scans are performed using dose optimization technique as appropriate and may inclu de automated exposure control or mA/KV adjustment according to patient size. FINDINGS: No intracranial hemorrhage, hydrocephalus or extra-axial fluid collection.No areas of brai n edema or evidence of midline shift. The paranasal sinuses and mastoids show mild bilateral polypoid thickening of the maxillary antra. Th e calvarium is intact. IMPRESSION: No acute intracranial abnormality. The findings were discussed with Dorinda Case On 02-09-22 at 4:33 pm by telephone. If there is continued clinical concern for CVA, MR imaging of the brain would be recommended.
[2022-02-09] MEDS ORDERED: ACETAMINOPHEN 325 MG TABLET ONE (16:51)
[2022-02-09] MEDS ORDERED: ASPIRIN 325 MG TAB ONE (16:51)
--- NOTE | 2022-02-09 17:48 | RAD REPORT ---
EXAM DESCRIPTION: RAD - Chest Single View - 02/09/2022 5:26 pm CLINICAL HISTORY: left eye vision changes and speaking changes Chest pain. COMPARISON: No comparisons FINDINGS: Portable technique limits examination quality. The lungs are grossly clear. The heart is normal in size. No displaced fractures. IMPRESSION: No acute intrathoracic process suspected.
--- NOTE | 2022-02-09 20:34 | RAD REPORT ---
EXAM DESCRIPTION: MRI - Brain Wo Cont - 02/09/2022 8:25 pm CLINICAL HISTORY: left eye visual changes and speech difficulty Headache, drowsiness, CVA symptomology COMPARISON: Ct Stroke Brain Wo Cont dated 02/09/2022 TECHNIQUE: Multi-sequence, multiplanar MR imaging of the brain was performed without contrast. FINDINGS: No intracranial hemorrhage, hydrocephalus or extra-axial fluid collections. No edema or sh ift of midline structures. No findings to suspect brain mass. DWI is negative for acute CVA. Midline structures are normally formed. Mild polypoid mucosal thickening of both maxillary antra. IMPRESSION: Negative for acute CVA or other acute intracranial process.
[2022-02-09] MEDS ORDERED: DIPHENHYDRAMINE 50 MG/ML VIAL ONE (21:15)
[2022-02-09] MEDS ORDERED: dexAMETHasone 10 MG/ML VIAL ONE (21:15)
[2022-02-09] MEDS ORDERED: METOCLOPRAMIDE 10 MG/2mL INJ ONE (21:15)
--- NOTE | 2022-02-09 21:55 | ER ---
Nurse's Notes [facility] Name: Bella Biswas Age: 61 yrs Sex: Female : 1960 Arrival Date: 02/09/2022 Time: 16:07 Bed 7 Private MD: Diagnosis: Migraine with aura Presentation: 02/09 16:14 Chief complaint: Patient states: JEREZ, loss of vision in one eye and trouble speaking. mb8 LKW at 1330 today. At this time symptoms have resolved. Coronavirus screen: Vaccine status: Patient reports receiving the 2nd dose of the covid vaccine. Ebola Screen: No symptoms or risks identified at this time. Initial Sepsis Screen: Does the patient meet any 2 criteria? No. Patient's initial sepsis screen is negative. Does the patient have a suspected source of infection? No. Patient's initial sepsis screen is negative. Risk Assessment: Do you want to hurt yourself or someone else? Patient reports no desire to harm self or others. Onset of symptoms was February 09, 2022 at 13:30. 16:14 Method Of Arrival: EMS mb8 16:14 Acuity: TIARRA 2 mb8 Triage Assessment: 16:17 General: Appears in no apparent distress. comfortable, Behavior is calm, cooperative, mb8 appropriate for age. Pain: Complains of pain in head. Historical: - Allergies: 20:22 No Known Allergies; kl - Home Meds: 20:22 levothyroxine oral [Active]; pantoprazole oral [Active]; kl - PMHx: 20:22 reynauds; kl - Immunization history:: Adult Immunizations not up to date. - Social history:: Smoking status: Patient denies any tobacco usage or history of. Screenin:05 VAN Screening: Arm Drift: Patient shows no arm weakness. Patient is VAN negative. mb8 Visual Disturbance: No visual disturbance noted. Aphasia: No aphasia noted. Neglect: No neglect noted. Patient has been NPO before screening. The patient is alert, able to follow commands. The patient does not exhibit slurred or garbled speech The patient is not exhibiting difficulty speaking. The patient does not exhibit difficulty understanding words. The patient is able to swallow own secretions with no drooling or need for suction. Patient tolerated one teaspoon of water. No drooling, immediate coughing, gurgling, or clearing of the throat was noted. The patient tolerated 90mL of water. No drooling, immediate coughing, gurgling, or clearing of the throat was noted. The patient passed the bedside swallow screening. Oral medications may be given as ordered. Contact Physician for further diet orders. Provider notified of bedside swallow screening results: Joni Pa DO. Fall Risk None identified. 16:22 Abuse screen: Denies threats or abuse. Denies injuries from another. Nutritional mb8 screening: No deficits noted. Tuberculosis screening: No symptoms or risk factors identified. Assessment: 16:19 Neuro: Level of Consciousness is awake, alert, obeys commands, Oriented to person, mb8 place, time, situation, System Safety Manager are equal bilaterally Moves all extremities. Full function Gait is steady, Speech is normal, Facial symmetry appears normal, Pupils are PERRLA, Intact Reports headache. Cardiovascular: Denies chest pain, shortness of breath, Heart tones S1 S2 Capillary refill Pulses are all present. are 3+ in right radial artery and left radial artery Rhythm is sinus rhythm. Respiratory: No deficits noted. 17:51 Reassessment: Patient and/or family updated on plan of care and expected duration. Pain mb8 level reassessed. Patient is alert, oriented x 3, equal unlabored respirations, skin warm/dry/pink. 20:22 Reassessment: Patient appears in no apparent distress at this time. Patient and/or kl family updated on plan of care and expected duration. Pain level reassessed. Patient is alert, oriented x 3, equal unlabored respirations, skin warm/dry/pink. Patient states symptoms have improved. Vital Signs: 16:14 BP 124 / 57; Pulse 96; Resp 20; Temp 97.3; Pulse Ox 96% ; mb8 16:46 BP 179 / 109; Pulse 74; Resp 16; Pulse Ox 99% ; mb8 17:11 BP 173 / 84; Pulse 76; Resp 18; Pulse Ox 99% ; mb8 17:51 BP 178 / 108; Pulse 69; Resp 18; Pulse Ox 99% ; Pain 6/10; mb8 20:27 BP 198 / 99; Pulse 72; Resp 18; Pain 5/10; kl 21:15 BP 167 / 92; kl 22:14 BP 139 / 90; Pulse 72; Resp 18; Pulse Ox 100% on R/A; kl NIH Stroke Scale Scores: 16:05 NIHSS Score: 0 mb8 16:21 NIHSS Score: 0 pm1 ED Course: 16:07 Patient arrived in ED. mb8 16:08 Joni Pa DO is Attending Physician. ms3 16:08 Walter Case NP is PHCP. ms3 16:10 Patient has correct armband on for positive identification. Bed in low position. Call mb8 light in reach. Side rails up X2. Client placed on continuous cardiac and pulse oximetry monitoring. NIBP monitoring applied. monitor technician on. 16:10 Inserted saline lock: 18 gauge in left antecubital area, using aseptic technique. Blood mb8 collected. 16:13 Daniel Matute, LEWIS is Primary Nurse. mb8 16:17 Triage completed. mb8 16:17 Arm band placed on. mb8 16:30 No provider procedures requiring assistance completed. mb8 16:33 CT Stroke Brain w/o Contrast In Process Unspecified. EDMS 17:28 Stroke CXR 1 View In Process Unspecified. EDMS 20:30 MRI - Brain Wo Cont In Process Unspecified. EDMS 21:00 No apparent distress. Resting quietly. kl 22:15 IV discontinued, intact, bleeding controlled, No redness/swelling at site. Pressure kl dressing applied. Administered Medications: 16:47 Drug: Tylenol 650 mg Route: PO; mb8 17:10 Follow up: Response: No adverse reaction mb8 16:47 Drug: Aspirin 325 mg Route: PO; mb8 17:11 Follow up: Response: No adverse reaction mb8 21:00 Drug: Benadryl (diphenhydrAMINE) 12.5 mg Route: IVP; Site: left antecubital; kl 21:05 Drug: Reglan (metoCLOPramide) 10 mg Route: IVP; Site: left antecubital; kl 21:10 Drug: Decadron - Dexamethasone 10 mg Route: IVP; Site: left antecubital; Medication: 16:20 VIS not applicable for this client. mb8 Outcome: 21:54 Discharge ordered by MD. pm1 22:16 Discharged to home ambulatory, with family. kl 22:16 Condition: improved 22:16 Discharge instructions given to patient, Instructed on discharge instructions, follow up and referral plans. medication usage, Demonstrated understanding of instructions, follow-up care, medications, Prescriptions given X 1. 22:16 Patient left the ED. NIH Stroke Scale - NIH Stroke Score Date: 02/09/2022 Time: 16:05 Total Score = 0 1a. Level of Consciousness (LOC) - 0(Alert) 1b. Level of Consciousness (LOC) (Month \T\ Age) - 0(Both) 1c. LOC Commands (Open \T\ Closes Eyes/Glucose And Syrup Weigher) - 0(Both) 2. Best Gaze (Lateral Gaze Paresis) - 0(Normal) 3. Visual Field Loss - 0(No visual loss) 4. Facial Palsy - 0(Normal) 5a. Left Arm: Motor (10-second hold) - 0(No drift) 5b. Right Arm: Motor (10-second hold) - 0(No drift) 6a. Left Leg: Motor (5-second hold - always test supine) - 0(No drift) 6b. Right Leg: Motor (5-second hold - always test supine) - 0(No drift) 7. Limb Ataxia (finger/nose \T\ heel/sigala - test with eyes open) - 0(Absent) 8. Sensory Loss (pinprick arms/legs/face) - 0(Normal) 9. Best Language: Aphasia (description/naming/reading) - 0(No aphasia) 10. Dysarthria (speech clarity - read or repeat words) - 0(Normal) 11. Extinction and Inattention (visual/tactile/auditory/spatial/personal) - 0(No abnormality) Initials: mb8 NIH Stroke Scale - NIH Stroke Score Date: 02/09/2022 Time: 16:21 Total Score = 0 1a. Level of Consciousness (LOC) - 0(Alert) 1b. Level of Consciousness (LOC) (Month \T\ Age) - 0(Both) 1c. LOC Commands (Open \T\ Closes Eyes/Glucose And Syrup Weigher) - 0(Both) 2. Best Gaze (Lateral Gaze Paresis) - 0(Normal) 3. Visual Field Loss - 0(No visual loss) 4. Facial Palsy - 0(Normal) 5a. Left Arm: Motor (10-second hold) - 0(No drift) 5b. Right Arm: Motor (10-second hold) - 0(No drift) 6a. Left Leg: Motor (5-second hold - always test supine) - 0(No drift) 6b. Right Leg: Motor (5-second hold - always test supine) - 0(No drift) 7. Limb Ataxia (finger/nose \T\ heel/sigala - test with eyes open) - 0(Absent) 8. Sensory Loss (pinprick arms/legs/face) - 0(Normal) 9. Best Language: Aphasia (description/naming/reading) - 0(No aphasia) 10. Dysarthria (speech clarity - read or repeat words) - 0(Normal) 11. Extinction and Inattention (visual/tactile/auditory/spatial/personal) - 0(No abnormality) Initials: pm1 Signatures: Dispatcher [employer] EDMS Tiffany Joseph, RN RN kl Walter Case, SAILBOAT CAPTAIN SAILBOAT CAPTAIN pm1 Joni Pa DO DO ms3 Daniel Matute RN RN mb8
--- NOTE | 2022-02-09 21:55 | EDPHYS ---
Physician Documentation [facility] Name: Bella Biswas Age: 61 yrs Sex: Female : 1960 Arrival Date: 02/09/2022 Time: 16:07 Bed 7 Private MD: ED Physician Joni Pa HPI: 02/09 16:21 This 61 yrs old Female presents to ER via EMS with complaints of S/S of Possible Stroke.pm1 16:21 The patient's problem is reported as headache and left eye visual loss for 30 minutes pm1 similar to prior migraines in the past, but patient reports difficulty with getting some of her words out when she experienced the headache. 16:21 Onset: The symptoms/episode began/occurred 1 hour(s) ago. Duration: This was a single pm1 incident. Context: Patient with aura and then episode of left visual change, loss in a portion of her vision with left-sided headache. The symptoms are alleviated by nothing. The symptoms are aggravated by nothing. Associated signs and symptoms: Pertinent positives: headache, Pertinent negatives: chest pain, shortness of breath. Severity of symptoms: in the emergency department the symptoms have resolved. Patient's baseline: Neuro: alert and fully oriented, Motor: no deficits, Ambulation: walks without assistance, Speech: normal. The patient has experienced similar episodes in the past, today's symptoms are similar, to previous Migraine headaches. The patient has not recently seen a physician. Historical: - Allergies: 20:22 No Known Allergies; kl - Home Meds: 20:22 levothyroxine oral [Active]; pantoprazole oral [Active]; kl - PMHx: 20:22 reynauds; kl - Immunization history:: Adult Immunizations not up to date. - Social history:: Smoking status: Patient denies any tobacco usage or history of. ROS: 16:21 Constitutional: Negative for fever, chills, and weight loss, Cardiovascular: Negative pm1 for chest pain, palpitations, and edema, Respiratory: Negative for shortness of breath, cough, wheezing, and pleuritic chest pain, Abdomen/GI: Negative for abdominal pain, nausea, vomiting, diarrhea, and constipation. 16:21 MS/Extremity: Negative for injury and deformity, Skin: Negative for injury, rash, and discoloration. 16:21 Eyes: Positive for visual disturbance, of the left eye. 16:21 Neuro: Positive for headache, of the left side of head. 16:21 All other systems are negative. Exam: 16:21 Constitutional: This is a well developed, well nourished patient who is awake, alert, pm1 and in no acute distress. Head/Face: Normocephalic, atraumatic. 16:21 Back: No spinal tenderness. No costovertebral tenderness. Full range of motion. Skin: Warm, dry with normal turgor. Normal color with no rashes, no lesions, and no evidence of cellulitis. MS/ Extremity: Pulses equal, no cyanosis. Neurovascular intact. Full, normal range of motion. 16:21 Eyes: Exam is negative for acute changes, Periorbital structures: no acute changes, Pupils: no acute changes, Extraocular movements: no acute changes, Conjunctiva: no acute changes, no injection, Visual enriquez: no acute changes, Nystagmus: is not appreciated. 16:21 ENT: Exam is negative for acute changes, Mouth: no acute changes, Lips: normal, moist, Oral mucosa: normal, pink and intact, moist, Posterior pharynx: no acute changes, Airway: normal, no evidence of obstruction, Tonsils: are normal in appearance, Voice: no acute changes. 16:21 Cardiovascular: Exam negative for acute changes, Rate: normal, Rhythm: regular, Pulses: no pulse deficits are appreciated, Heart sounds: normal, normal S1and S2, Edema: is not appreciated. 16:21 Respiratory: Exam negative for acute changes, respiratory distress, shortness of breath. 16:21 Abdomen/GI: Inspection: abdomen appears normal, Palpation: abdomen is soft and non-tender, in all quadrants. 16:21 Neuro: Orientation: is normal, Mentation: is normal, Cerebellar function: normal finger to nose testing, heel to sigala testing is normal, Motor: is normal, moves all fours, strength is 5/5 in all extremities, Sensation: no obvious gross deficits, Abnormal movements: there are no abnormal movements. 16:38 Radiologist reports: Negative for acute findings pm1 Vital Signs: 16:14 BP 124 / 57; Pulse 96; Resp 20; Temp 97.3; Pulse Ox 96% ; mb8 16:46 BP 179 / 109; Pulse 74; Resp 16; Pulse Ox 99% ; mb8 17:11 BP 173 / 84; Pulse 76; Resp 18; Pulse Ox 99% ; mb8 17:51 BP 178 / 108; Pulse 69; Resp 18; Pulse Ox 99% ; Pain 6/10; mb8 20:27 BP 198 / 99; Pulse 72; Resp 18; Pain 5/10; kl 21:15 BP 167 / 92; kl 22:14 BP 139 / 90; Pulse 72; Resp 18; Pulse Ox 100% on R/A; kl NIH Stroke Scale Scores: 16:05 NIHSS Score: 0 mb8 16:21 NIHSS Score: 0 pm1 MDM: 16:08 Patient medically screened. ms3 16:13 ED course: Patient is not a thrombolytic candidate. Patient's symptoms have resolved pm1 with NIHSS=0. 20:47 Data reviewed: vital signs. Data interpreted: Pulse oximetry: on room air is 99 %. pm1 Interpretation: normal. Counseling: I had a detailed discussion with the patient and/or guardian regarding: the historical points, exam findings, and any diagnostic results supporting the discharge/admit diagnosis, lab results, radiology results, the need for outpatient follow up, a neurologist. 02/09 16:12 Order name: Basic Metabolic Panel; Complete Time: 16:40 pm1 02/09 16:12 Order name: CBC with Diff; Complete Time: 16:40 pm1 02/09 16:12 Order name: Protime (+inr); Complete Time: 17:15 pm1 02/09 16:12 Order name: Ptt, Activated; Complete Time: 17:15 pm1 02/09 16:14 Order name: glucometer results - FOR PT WITH NO ID; Complete Time: 20:27 8 02/09 16:20 Order name: TSH; Complete Time: 17:15 pm1 02/09 16:12 Order name: CT Stroke Brain w/o Contrast; Complete Time: 17:15 pm1 02/09 16:12 Order name: Stroke CXR 1 View; Complete Time: 18:29 pm1 02/09 16:12 Order name: MRI - Brain Wo Cont; Complete Time: 20:38 pm1 02/09 16:12 Order name: EKG; Complete Time: 16:13 pm1 02/09 16:12 Order name: Accucheck; Complete Time: 16:13 pm1 02/09 16:12 Order name: Cardiac monitoring; Complete Time: 16:13 pm1 02/09 16:12 Order name: EKG - Nurse/Tech; Complete Time: 16:13 pm1 02/09 16:12 Order name: IV Saline Lock; Complete Time: 16:13 pm1 02/09 16:12 Order name: Labs collected and sent; Complete Time: 16:13 pm1 02/09 16:12 Order name: NPO; Complete Time: 16:13 pm1 02/09 16:12 Order name: O2 Per Protocol; Complete Time: 16:13 pm1 02/09 16:12 Order name: O2 Sat Monitoring; Complete Time: 16:13 pm1 02/09 16:12 Order name: Stroke Swallow Screen; Complete Time: 16:13 pm1 EC:21 Rate is 78 beats/min. Rhythm is regular, Normal Sinus Rhythm with No ectopy. ND pm1 interval is normal. QRS interval is normal. QT interval is normal. No Q waves. T waves are Normal. No ST changes noted. Clinical impression: Normal sinus rhythm, rightward axis deviation, borderline ECG. Administered Medications: 16:47 Drug: Tylenol 650 mg Route: PO; mb8 17:10 Follow up: Response: No adverse reaction mb8 16:47 Drug: Aspirin 325 mg Route: PO; mb8 17:11 Follow up: Response: No adverse reaction mb8 21:00 Drug: Benadryl (diphenhydrAMINE) 12.5 mg Route: IVP; Site: left antecubital; kl 21:05 Drug: Reglan (metoCLOPramide) 10 mg Route: IVP; Site: left antecubital; kl 21:10 Drug: Decadron - Dexamethasone 10 mg Route: IVP; Site: left antecubital; kl Disposition: 23:14 Co-signature as Attending Physician, Joni Pa DO I agree with the assessment and ms3 plan of care. Disposition Summary: 02/09/22 21:54 Discharge Ordered Location: Home pm1 Problem: new pm1 Symptoms: have improved pm1 Condition: Stable pm1 Diagnosis - Migraine with aura pm1 Followup: pm1 - With: Emergency Department - When: As needed - Reason: Worsening of condition Followup: pm1 - With: Private Physician - When: 2 - 3 days - Reason: Recheck today's complaints, Continuance of care, Re-evaluation by your physician Discharge Instructions: - Discharge Summary Sheet pm1 - Migraine Headache pm1 Forms: - Medication Reconciliation Form pm1 - Thank You Letter pm1 - Antibiotic Education pm1 - Prescription Opioid Use pm1 Prescriptions: - [id number] - take 1 tablet by ORAL route every 4 hours As needed; 20 tablet; Refills: 0, pm1 Product Selection Permitted NIH Stroke Scale - NIH Stroke Score Date: 02/09/2022 Time: 16:05 Total Score = 0 1a. Level of Consciousness (LOC) - 0(Alert) 1b. Level of Consciousness (LOC) (Month \T\ Age) - 0(Both) 1c. LOC Commands (Open \T\ Closes Eyes/Slimer) - 0(Both) 2. Best Gaze (Lateral Gaze Paresis) - 0(Normal) 3. Visual Field Loss - 0(No visual loss) 4. Facial Palsy - 0(Normal) 5a. Left Arm: Motor (10-second hold) - 0(No drift) 5b. Right Arm: Motor (10-second hold) - 0(No drift) 6a. Left Leg: Motor (5-second hold - always test supine) - 0(No drift) 6b. Right Leg: Motor (5-second hold - always test supine) - 0(No drift) 7. Limb Ataxia (finger/nose \T\ heel/sigala - test with eyes open) - 0(Absent) 8. Sensory Loss (pinprick arms/legs/face) - 0(Normal) 9. Best Language: Aphasia (description/naming/reading) - 0(No aphasia) 10. Dysarthria (speech clarity - read or repeat words) - 0(Normal) 11. Extinction and Inattention (visual/tactile/auditory/spatial/personal) - 0(No abnormality) Initials: mb8 NIH Stroke Scale - NIH Stroke Score Date: 02/09/2022 Time: 16:21 Total Score = 0 1a. Level of Consciousness (LOC) - 0(Alert) 1b. Level of Consciousness (LOC) (Month \T\ Age) - 0(Both) 1c. LOC Commands (Open \T\ Closes Eyes/Slimer) - 0(Both) 2. Best Gaze (Lateral Gaze Paresis) - 0(Normal) 3. Visual Field Loss - 0(No visual loss) 4. Facial Palsy - 0(Normal) 5a. Left Arm: Motor (10-second hold) - 0(No drift) 5b. Right Arm: Motor (10-second hold) - 0(No drift) 6a. Left Leg: Motor (5-second hold - always test supine) - 0(No drift) 6b. Right Leg: Motor (5-second hold - always test supine) - 0(No drift) 7. Limb Ataxia (finger/nose \T\ heel/sigala - test with eyes open) - 0(Absent) 8. Sensory Loss (pinprick arms/legs/face) - 0(Normal) 9. Best Language: Aphasia (description/naming/reading) - 0(No aphasia) 10. Dysarthria (speech clarity - read or repeat words) - 0(Normal) 11. Extinction and Inattention (visual/tactile/auditory/spatial/personal) - 0(No abnormality) Initials: pm1 Signatures: Dispatcher [employer] Tiffany Adams RN RN kl Marinas, Patrick, JAMES CONTROL AREA OPERATOR pm1 Joni Pa DO DO ms3 Daniel Matute RN RN mb8
[2022-02-10 01:38] VITALS: TEMP 97.3
[2022-02-10 02:14] VITALS: BP 139/90; O2SAT 100
--- NOTE | 2022-02-10 10:53 | EKG ---
Test Date: 2022-02-09 Test Time: 16:19:10 Ambulatory Nurse: MEASUREMENT RESULTS: Intervals: Rate: 78 NH: 126 QRSD: 82 QT: 374 QTc: 426 Patterson: P: 85 NH: 126 QRS: 91 T: 71 INTERPRETIVE STATEMENTS: Normal sinus rhythm Rightward axis Borderline ECG No previous ECG available for comparison Electronically Signed On 02-10-22 10:50:17 CDT by Vinay Bee
== END 2022-02-09 22:16 | disposition home or self-care (01) ==
LOC: ER 16:02
DX: G43.109 Migraine with aura, not intractable, without status migrainosus (principal); F17.210 Nicotine dependence, cigarettes, uncomplicated
CPT/HCPCS: 93005; 85025; 80048; 36415; 85610; 82947; 85730; 84443; 70450; 71045; 70551; 96375; 96374; 99284; J2765; J1200; J1100